=== PATIENT | female | born 1955 | race Caucasian/White ===

== ENCOUNTER 2017-08-30 03:11 | Emergency (ER) | payer BC, MEDICARE ==
[2017-08-30] MEDS ORDERED: Diatrizoate Meg/Sod(CONTRAST) 30 ML ORAL.SOLN PO ONE (04:01)
[2017-08-30] MEDS ORDERED: Diazepam TAB(NF) 2 MG TAB - use 2.5 of 5 mg tab autosub PO ONE (04:42)
[2017-08-30] MEDS ORDERED: Diazepam TAB(*) 5 MG ONE (04:52)
[2017-08-30] MEDS ORDERED: Diazepam TAB(*) 5 MG PO ONE (05:00)
[2017-08-30] MEDS ORDERED: Lidocaine/Epineph/Tetraca SOL* (LET solution) 4 ML BTL TOPICAL ONE (05:35)
--- NOTE | 2017-08-30 06:20 | ED ---
Xavi Marcum Jennifer, scribed for Oh Collins MD on 08/30/17 at 0353 . Abdominal Pain/Female - HPI Summary HPI Summary: The patient is a 62 year old female who presents with abdominal pain for almost two days. The patient has a pump in her stomach for Parkinson medication. She noticed that around the site behind the skin she has been feeling a rubbing sensation. She doesnt know if its a balloon or a flange. The pain is described as sore. The patient reports the pump has been in her stomach since around April 2017. She is accompanied by her son today. - History of Current Complaint Chief Complaint: EDAbdPain Stated Complaint: ABD PAIN Hx Obtained From: Patient Onset/Duration: Lasting Days - two days, Still Present Timing: Constant Severity Initially: Mild Severity Currently: Mild Pain Intensity: 2 Pain Scale Used: 0-10 Numeric Location: Epigastric Radiates: No Character: Other: - Sore, "rubbing" Aggravating Factor(s): Nothing Alleviating Factor(s): Nothing Associated Signs and Symptoms: Positive: Other: - sore around site of J tube Allergies/Adverse Reactions: Allergies Allergy/AdvReac Type Severity Reaction Status Date / Time ampicillin Allergy Nausea Verified 08/30/17 03:19 erythromycin base Allergy Hives/Diff. Verified 08/30/17 03:19 Breathing/I tching meperidine [From Demerol] Allergy Fatigue Verified 08/30/17 03:19 PMH/Surg Hx/FS Hx/Imm Hx Endocrine/Hematology History: Denies: Hx Diabetes Cardiovascular History: Denies: Hx Hypertension, Hx Pacemaker/ICD History: Denies: Hx Dialysis, Hx Renal Disease Sensory History: Denies: Hx Hearing Aid Neurological History: Reports: Other Neuro Impairments/Disorders - Parkinson's Psychiatric History: Denies: Hx Panic Disorder - Surgical History Surgery Procedure, Year, and Place: KIDNEY STONES REMOVED 2005 - Immunization History Date of Influenza Vaccine: did not receive Infectious Disease History: No Infectious Disease History: Reports: Hx Shingles Denies: Traveled Outside the [place] in Last 30 Days - Family History Known Family History: Positive: Cardiac Disease - Social History Alcohol Use: None Hx Substance Use: No Substance Use Type: Reports: None Hx Tobacco Use: No Smoking Status (MU): Never Smoked Tobacco Review of Systems Negative: Fever Positive: Abdominal Pain - at site of J tube All Other Systems Reviewed And Are Negative: Yes Physical Exam - Summary Physical Exam Summary: Appearance: Well appearing, no pain distress Skin: warm, dry, reflects adequate perfusion Head/face: normal Eyes: EOMI, HERIBERTO ENT: normal Neck: supple, non-tender Respiratory: CTA, breath sounds present Cardiovascular: RRR, pulses symmetrical Abdomen: non-tender, soft. No J tube in epigastrium. No redness in stmoa, no drainage around tube, movement of bowel content around the tube. Bowel Sounds: present Musculoskeletal: normal, strength/ROM intact Neuro: normal, sensory motor intact, A&Ox3 Triage Information Reviewed: Yes Vital Signs On Initial Exam: Initial Vitals Temp Pulse Resp BP Pulse Ox 97.8 F 73 16 182/94 99 08/30/17 03:14 08/30/17 03:14 08/30/17 03:14 08/30/17 03:14 08/30/17 03:14 Vital Signs Reviewed: Yes Diagnostics - Vital Signs Vital Signs Temp Pulse Resp BP Pulse Ox 08/30/17 03:14 97.8 F 73 16 182/94 99 - Laboratory Lab Statement: Any lab studies that have been ordered have been reviewed, and results considered in the medical decision making process. - Radiology Abdominal XR Xray Interpretation: Positive (See Comments) - feeding tube in the small bowel Radiology Interpretation Completed By: ED Physician Re-Evaluation - Re-Evaluation First Eval Re-Evaluation Time: 06:02 Change: Improved Comment: Pt's pain is gone after applying LET gel. Abdominal Pain Fem Course/Dx - Course Course Of Treatment: Patient with chronic troubles with her feeding tube. She has pain at the site of insertion in the skin. This is known to be a distal jejunal or ileal tube. She gets continuous infusion through a pump which has been functioning normally. The tube flushes normally. Contrasted x-rays were obtained and show the tube in position. Her pain was relieved with topical LET gel. She will follow-up with her receivable executive for any further issues with the tube. - Diagnoses Provider Diagnoses: Complication of feeding tube, Parkinsonism, Pain from gastrostomy tube Discharge - Sign-Out/Discharge Documenting (check all that apply): Discharge/Admit/Transfer - Discharge Plan Condition: Good Disposition: HOME Prescriptions: Lidocaine 2% JELLY* 1 applic TOPICAL TID PRN #1 tube PRN Reason: feeding tube site pain Referrals: aCrlos Loyola MD [Primary Care Provider] - Additional Instructions: Call your receivable executive for follow-up regarding discomfort the site of the feeding tube. Continue to use the tube as usual. Bolster the tube in whatever way he is most comfortable. Return if worse, new symptoms or other concerns as discussed. - Billing Disposition and Condition Condition: GOOD Disposition: HOME The documentation as recorded by the Xavi fink Jennifer accurately reflects the service I personally performed and the decisions made by me, Oh Collins MD.
[2017-08-30 06:30] VITALS: BP 148/90
--- NOTE | 2017-08-30 07:54 | RAD ---
INDICATION: Jejunostomy tube pain. COMPARISON: There are no prior studies available for comparison. TECHNIQUE: Frontal supine and lateral films of the abdomen were obtained. The exam appears to be performed status post injection of a jejunostomy tube with contrast. FINDINGS: The small bowel and colon appear nondistended. Contrast is noted opacifying small bowel in the midabdomen and left lower quadrant. The small bowel appears nondistended. There is no evidence for leakage of contrast. Incidental note is made of a [id number] dorsal lumbar scoliosis. IMPRESSION: JEJUNOSTOMY TUBE IN PLACE, NO EVIDENCE FOR OBSTRUCTION.
== END 2017-08-30 06:25 | disposition home or self-care (01) ==
LOC: ED 03:11
DX: K94.23 Gastrostomy malfunction (principal); G20 Parkinson's disease; R10.13 Epigastric pain; Z87.442 Personal history of urinary calculi; Z88.1 Allergy status to other antibiotic agents; Z88.0 Allergy status to penicillin; Z88.5 Allergy status to narcotic agent
CPT/HCPCS: 74018; 99283; A9270-GY

== ENCOUNTER 2017-11-04 06:39 | Emergency (ER) | payer MEDICARE ==
[2017-11-04 06:46] VITALS: BP 157/80
--- OUTSIDE RECORDS SUMMARY | 2017-11-04 06:53 | XMS REPORT ---
:1955 External Reference #:[id number] Author Organization [facility] Address [address] [place] [address] Phone [phone] Care Team Providers Name Role Phone HCP/LW on file Primary Care Physician Unavailable Payers Type Date Identification Numbers Payment Provider Subscriber Medicare Primary Effective: Policy Number: [facility] Maryan Torrez 2017 [id number] Services PayID: [id number] [address] [facility] [place] [address] [place] Policy Number: [id number] [facility] Maryan Torrez PayID: [id number] [address] [place] [address] Problems Date Description Provider Status Onset: 10/13/2014 Osteoporosis Carlos Loyola M.D. Active Onset: 10/13/2014 Vitamin D deficiency Carlos Loyola M.D. Active Onset: 10/13/2014 Parkinson's disease Carlos Loyola M.D. Active Onset: 10/13/2014 Anxiety state Carlos Loyola M.D. 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 Cigarette Use 05/13/2014 Never Smoked Cigarettes Smoking Non Smoker Daily Caffeine Consumes on average 1 cup of tea per day Exercise Type/Frequency Exercises regularly Sun Exposure Uses sunscreen Seat Belt/Car Seat Seat Belt Use - Yes Age 1st [place] 16 Years Old # Partners in a Lifetime 1 Allergies, Adverse Reactions, Alerts Date Description Reaction Status Severity Comments 05/13/2014 Ampicillin active nausea 12/22/2015 Erythromycin active Medications Medication Date Status Form Strength Qnty SIG Indications Ordering Provider Diclofenac 10/09/ Active Gel 1% 100gm apply up to 1 M79.642 Claudine Loyola 2018 gram 4x/day Carlos, as needed to M.D. base of left thumb Compleat A 10/08/ Active 2-3 oz twice Unknown Food Protein 2017 a day Carbidopa-Lev 05/19/ Active Tablets 25-100mg 1 tablet Unknown odopa 2018 nightly as needed backup for pump Duopa 05/19/ Active Suspension 4.63-20mg use via pump G20 Unknown 2017 /ml and G-tube; use as directed, 16 hours/day Vitamin B12 05/19/ Active Tablets ER 1000mcg take 1 Unknown 2018 sublingual tablet daily Neupro 04/11/ Active Patches 6mg/24HR daily G20 Unknown 2016 24HR Diazepam 12/21/ Active Tablets 2mg 180ta 05/09-1 tab by G20 Nir, 2015 bs mouth every 4 Carlos, hours as M.D. needed BP8 12/20/ Active 1 po daily Unknown 2015 (probiotic from [facility]) Metamucil 12/20/ Active Capsules 0.52gm one capsule Unknown 2015 daily for constipation Calcium 08/26/ Active Tablets 600mg po daily Unknown Carbonate 2015 Vitamin D3 07/11/ Active Capsules 5000Unit 1 by mouth Nir, 2015 every day for Carlos vitamin d M.D. replacement Gabapentin 04/21/ Active Capsules 300mg 540ca 2 capsules by Nir 2014 ps mouth 3x/day Benito Gonzalez Buspirone HCL 01/03/ Active Tablets 15mg 180ta take 1 tablet F41.9 Nir, 2014 bs by mouth two Carlos, times daily M.D. for anxiety Prolia 10/13/ Active Solution 60mg/ml 1ml inject 60mg M81.0 Nir 2014 s/c every 6 Carlos, months (due M.D. 06/2017) Fish Oil 05/12/ Active Capsules 1200mg 1 by mouth Unknown 2014 every day Carbidopa-Lev 05/12/ Active Tablets ER 50-200mg 1 tablet G20 Unknown odopa ER 2014 nightly Cephalexin 09/08/ Hx Capsules 500mg 21cap 1 capsule L03.311 Nir, 2018 - s 3x/day for 1 Carlos, 09/15/ week, for M.D. 2018 abdominal wall infection Lidocaine HCL 08/30/ Hx Gel 2% 100ml apply upo to Nir, 2017 - three times a Carlos, 09/07/ day as needed M.D. 2018 for feeding tube site pain Cephalexin 08/01/ Hx Capsules 500mg 14cap 1 twice a day L03.311 Nir , 2017 - s x 7 days for Carlos, 08/08/ infected M.D. 2018 region around peg tube. Neupro 12/01/ Hx Patches 4mg/24HR daily Unknown 2015 - 24HR 2017 Ropinirole 08/26/ Hx Tablets 0.25mg 1 tablet po Unknown HCL 2016 - five times 10/14/ daily 2016 Rytary 08/26/ Hx Capsules ER 36.25-145 3 capsules by G20 Unknown 2015 - mg mouth three 05/19/ times daily 2018 for Parkinson's Disease.. Takes at 0500, 1300 and 1600/1700. Domperidone 08/26/ Hx 10mg as directed, Unknown 2015 - take with 05/19/ every meal as 2018 needed Carbidopa-Lev 04/21/ Hx Tablets 25-100mg 1 by mouth G20 Unknown odopa 2014 - 6x/day for 05/22/ Parkinson's 2016 Disease Omeprazole 01/03/ Hx Capsules DR 40mg 30cap 1 by mouth 789.06 Nir, 2015 - s every day for Carlos, 04/21/ acid reflux M.D. 2014 and belly pain; stop if not helping after 1 week Lyrica 12/12/ Hx Capsules 75mg 1 capsule po Unknown 2014 - twice daily 12/19/ for 1 week 2014 and then increase to 2 capsules twice daily Melatonin 11/17/ Hx Liquid drop as need Unknown 2014 - at hs 2014 Zolpidem 10/31/ Hx Tablets 5mg 30tab 1 by mouth Nir Tartrate 2014 - s every night Carlos 07/13/ as needed for M.D. 2014 sleep Paroxetine 10/28/ Hx Tablets 20mg 1/2 pill 300.00 [place], HCL 2015 - daily for 2 Carlos weeks then M.D. 2014 stop it 332.0 Gabapentin 10/28/2014 - Hx Capsules 100mg 360caps 4 capsules 782.0 [place], 12/12/2014 3x/day, for Carlos, nerve pain M.D. Buspirone HCL 10/13/2014 - Hx Tablets 10mg 60tabs 1/2 by mouth 300.00 [place]ff, 01/03/2015 twice a day Carlos, for 1 week M.D. then increase to 1 pill 2x/day; for anxiety Gabapentin 09/24/2014 - Hx Capsules 100mg 270caps 3 capsules by 782.0 [place]ff, 10/28/2014 mouth 3x/day Carlos, for M.D. neuropathic pain and anxiety Gabapentin 09/19/2014 - Hx Capsules 100mg 100caps 1 by mouth at 782.0 Silcoff, 09/24/2014 bedtime avel Gonzalez, then M.D. 1 pill 2x/day on monday then 1 pill 3x/day starting monday Vitamin D3 09/15/2014 - Hx Capsules [id number] 1 by mouth 268.9 Philippe, 12/16/2014 t every week, MD Mame for vitamin D deficiency Paroxetine 07/18/2014 - Hx Tablets 20mg 30tabs Take One 300.00 [place]ff, HCL 10/28/2014 Tablet By Carlos Mouth Every M.D. Day For Anxiety 332.0 Amantadine HCL 07/17/2014 - Hx Tablets 100mg 1 by mouth 332.0 [place], 09/15/2014 every morning MD Victoriano for Parkinson's Disease Paroxetine HCL 07/01/2014 - Hx Tablets 10mg 30ta 1 tablet po in 300.00 Shanelle, 07/18/2014 bs the evening MD Victoriano before bed 332.0 Amantadine HCL 06/12/2014 - Hx Tablets 100mg 60tabs 1 tablet po 332.0 [place], 07/17/2014 daily in the MD Victoriano morning for 2 weeks,then 1 capsule in the morning an 1 capsule at noon Carbidopa-Levo 05/12/2014 - Hx Tablets 25-100mg 1 po 0700, G20 Unknown dopa 04/21/2015 11:00, 3:00pm, 7:00pm, 1 am Selegiline HCL 05/12/2014 - Hx Capsules 5mg 1 po daily Unknown 06/05/2014 Vitamin D3 05/12/2014 - Hx Capsules 1000Unit daily Unknown 07/12/2015 Gabapentin - Hx Capsules 300mg 1 by mouth at Unknown 04/21/2015 0500, 1100, 1500, 1900 and 0100. Gabapentin - Hx Capsules 100mg 2 caps po at Unknown 04/21/2015 2130. Medications Administered in Office Medication Date Status Form Strength Qnty SIG Indications Ordering Provider SC/Im Administered Injection Nurse's Injections 018 Schedule SC/Im Administered Injection Nurse's Injections 017 Schedule SC/Im Administered Injection Nurse's Injections 017 Schedule SC/Im Administered Injection Nurse's Injections 016 Schedule SC/Im Administered Injection Nurse's Injections 016 Schedule SC/Im Administered Injection Silcoff, Injections 015 Benito Gonzalez Immunizations CPT Code Status Date Vaccine Lot # [id number] Given 08/12/2014 Zostavax [id number] Given 08/12/2014 Adacel or Boostrix, TDaP [id number] Refused 09/08/2017 Shingrix Zoster (Shingles) Vaccine (HZV) Recomb,Subnit,Adjuvanted Vital Signs Date Vital Result Comment 10/09/2017 BP Systolic 90 mmHg BP Diastolic 66 mmHg Weight 93.00 lb 09/08/2017 BP Systolic 96 mmHg BP Diastolic 69 mmHg Heart Rate 75 /min Body Temperature 97.3 F Weight 92.00 lb 08/01/2017 BP Systolic 110 mmHg BP Diastolic 72 mmHg Body Temperature 98.2 F Weight 94.00 lb with shoes 05/20/2017 BP Systolic 114 mmHg BP Diastolic 57 mmHg Heart Rate 61 /min Body Temperature 97.6 F Height 66 inches 5'6" Weight 98.00 lb w/shoes and pump BMI (Body Mass Index) 15.8 kg/m2 09/13/2016 BP Systolic 120 mmHg BP Diastolic 67 mmHg Height 65 inches 5'5" Weight 100.00 lb BMI (Body Mass Index) 16.6 kg/m2 08/24/2016 BP Systolic 122 mmHg BP Diastolic 80 mmHg Height 65.5 inches 5'5.50" Weight 102.00 lb BMI (Body Mass Index) 16.7 kg/m2 12/25/2015 BP Systolic 130 mmHg BP Diastolic 76 mmHg 12/22/2015 BP Systolic 98 mmHg BP Diastolic 62 mmHg Weight 98.00 lb 09/08/2015 BP Systolic 104 mmHg BP Diastolic 66 mmHg Heart Rate 72 /min reg Respiratory Rate 16 /min not laboured Height 65 inches 5'5" Weight 107.00 lb BMI (Body Mass Index) 17.8 kg/m2 04/22/2015 BP Systolic 126 mmHg BP Diastolic 90 mmHg Weight 123.00 lb 01/03/2015 BP Systolic 130 mmHg BP Diastolic 80 mmHg Weight 129.00 lb with sneakers 12/19/2014 BP Systolic 90 mmHg Left arm BP Diastolic 35 mmHg Left arm BP Systolic Recheck 90 mmHg Right arm BP Diastolic Recheck 62 mmHg Right arm Heart Rate 68 /min 80 Weight 129.00 lb 11/18/2014 BP Systolic 108 mmHg BP Diastolic 82 mmHg Weight 130.00 lb shoes on 10/13/2014 BP Systolic 102 mmHg BP Diastolic 60 mmHg 09/19/2014 BP Systolic 170 mmHg BP Diastolic 110 mmHg Weight 129.00 lb 08/12/2014 BP Systolic 120 mmHg BP Diastolic 80 mmHg Height 65.25 inches 5'5.25" Weight 127.00 lb BMI (Body Mass Index) 21.0 kg/m2 07/18/2014 BP Systolic 112 mmHg BP Diastolic 68 mmHg 07/09/2014 BP Systolic 144 mmHg BP Diastolic 96 mmHg Weight 126.00 lb w/shoes 05/13/2014 BP Systolic 160 mmHg BP Diastolic 86 mmHg BP Systolic Recheck 146 mmHg R arm sitting BP Diastolic Recheck 94 mmHg R arm sitting Height 65 inches 5'5" Weight 128.50 lb BMI (Body Mass Index) 21.4 kg/m2 Results Test Date Test Result H/L Range Note Laboratory test finding 07/03/2017 Calcium 9.9 mg/dL 8.6-10.3 Basic Metabolic Panel 12/21/2016 Sodium 138 mmol/L 133-145 Potassium 3.9 mmol/L 3.5-5.0 Chloride 103 mmol/L 101-111 Co2 Carbon Dioxide 31 mmol/L 22-32 Anion Gap 4 mmol/L 2-11 Glucose 81 mg/dL 70-100 Blood Urea Nitrogen 10 mg/dL 6-24 Creatinine 0.68 mg/dL 0.51-0.95 BUN/Creatinine Ratio 14.7 8-20 Calcium 9.2 mg/dL 8.6-10.3 Egfr Non- 87.4 >60 Egfr 112.4 >60 1 Laboratory test finding 08/24/2016 Magnesium 2.3 mg/dL 1.9-2.7 Vitamin D Total 25(Oh) 30.9 ng/mL 30-50 TSH (Thyroid Stim Horm) 1.48 mcIU/mL 0.34-5.60 C Reactive Protein < 1.00 mg/L < 5.00 2 Erythrocyte Sed Rate 5 mm/Hr 0-30 Vitamin B12 695 pg/mL 180-914 3 Comp Metabolic Panel 08/24/2016 Sodium 140 mmol/L 133-145 Potassium 4.2 mmol/L 3.5-5.0 Chloride 104 mmol/L 101-111 Co2 Carbon Dioxide 34 mmol/L High 22-32 Anion Gap 2 mmol/L 2-11 Glucose 106 mg/dL High 70-100 Blood Urea Nitrogen 8 mg/dL 6-24 Creatinine 0.68 mg/dL 0.51-0.95 BUN/Creatinine Ratio 11.8 8-20 Calcium 10.0 mg/dL 8.6-10.3 Total Protein 6.8 g/dL 6.4-8.9 Albumin 4.6 g/dL 3.2-5.2 Globulin 2.2 g/dL 2-4 Albumin/Globulin Ratio 2.1 1-3 Total Bilirubin 0.50 mg/dL 0.2-1.0 Alkaline Phosphatase 49 U/L 34-104 Alt 8 U/L 7-52 Ast 25 U/L 13-39 Egfr Non- 87.4 >60 Egfr 112.4 >60 4 CBC Auto Diff 08/24/2016 White Blood Count 5.9 10^3/uL 3.5-10.8 Red Blood Count 5.12 10^6/uL 4.0-5.4 Hemoglobin 14.5 g/dL 12.0-16.0 Hematocrit 45 % 35-47 Mean Corpuscular Volume 88 fL 80-97 Mean Corpuscular Hemoglobin 28 pg 27-31 Mean Corpuscular HGB Conc 32 g/dL 31-36 Red Cell Distribution Width 15 % 10.5-15 Platelet Count 208 10^3/uL 150-450 Mean Platelet Volume 10 um3 7.4-10.4 Abs Neutrophils 4.4 10^3/uL 1.5-7.7 Abs Lymphocytes 1.0 10^3/uL 1.0-4.8 Abs Monocytes 0.4 10^3/uL 0-0.8 Abs Eosinophils 0.1 10^3/uL 0-0.6 Abs Basophils 0 10^3/uL 0-0.2 Abs Nucleated RBC 0 10^3/uL Granulocyte % 75.1 % 38-83 Lymphocyte % 17.0 % Low 25-47 Monocyte % 6.4 % 1-9 Eosinophil % 0.9 % 0-6 Basophil % 0.6 % 0-2 Nucleated Red Blood Cells % 0 Celiac Panel 08/24/2016 Tissue Transglutaminase IgA Ab <1.2 U/mL 5 Immunoglobulin A 100 mg/dL 61 - 356 Celiac Interpretation See Comment 6 Celiac Hla DQ1/DQ2 08/24/2016 Hla-Dqa1 SEE BELOW 7 Hla-DQB1 SEE BELOW 8 Celiac Gene Pairs Present? No Celiac Gene Interpretation See Comment 9 Basic Metabolic Panel 06/27/2016 Sodium 141 mmol/L 133-145 Potassium 4.1 mmol/L 3.5-5.0 Chloride 102 mmol/L 101-111 Co2 Carbon Dioxide 32 mmol/L 22-32 Anion Gap 7 mmol/L 2-11 Glucose 96 mg/dL 70-100 Blood Urea Nitrogen 10 mg/dL 6-24 Creatinine 0.76 mg/dL 0.51-0.95 BUN/Creatinine Ratio 13.2 8-20 Calcium 10.2 mg/dL 8.6-10.3 Egfr Non- 76.9 >60 Egfr 98.8 >60 10 Laboratory test finding 06/27/2016 Vitamin D Total 25(Oh) 32.9 ng/mL 30- 50 Basic Metabolic Panel 12/28/2015 Sodium 141 mmol/L 133-145 Potassium 4.3 mmol/L 3.5-5.0 Chloride 103 mmol/L 101-111 Co2 Carbon Dioxide 34 mmol/L High 22-32 Anion Gap 4 mmol/L 2-11 Glucose 77 mg/dL 70-100 Blood Urea Nitrogen 9 mg/dL 6-24 Creatinine 0.67 mg/dL 0.51-0.95 BUN/Creatinine Ratio 13.4 8-20 Calcium 9.8 mg/dL 8.6-10.3 Egfr Non- 89.2 >60 Egfr 114.7 >60 11 CBC Auto Diff 12/17/2015 White Blood Count 6.7 10^3/uL 3.5-10.8 Red Blood Count 5.50 10^6/uL High 4.0-5.4 Hemoglobin 15.3 g/dL 12.0-16.0 Hematocrit 47 % 35-47 Mean Corpuscular Volume 86 fL 80-97 Mean Corpuscular Hemoglobin 28 pg 27-31 Mean Corpuscular HGB Conc 32 g/dL 31-36 Red Cell Distribution Width 15 % 10.5-15 Platelet Count 235 10^3/uL 150-450 Mean Platelet Volume 9 um3 7.4-10.4 Abs Neutrophils 4.4 10^3/uL 1.5-7.7 Abs Lymphocytes 1.6 10^3/uL 1.0-4.8 Abs Monocytes 0.6 10^3/uL 0-0.8 Abs Eosinophils 0.1 10^3/uL 0-0.6 Abs Basophils 0 10^3/uL 0-0.2 Abs Nucleated RBC 0 10^3/uL Granulocyte % 65.3 % 38-83 Lymphocyte % 24.0 % Low 25-47 Monocyte % 9.2 % High 1-9 Eosinophil % 0.9 % 0-6 Basophil % 0.6 % 0-2 Nucleated Red Blood Cells % 0 Laboratory test finding 12/17/2015 Lactic Acid 1.2 mmol/L 0.5-2.0 12 Digoxin 0.2 ng/ml Low 0.8-2.0 Comp Metabolic Panel 12/17/2015 Sodium 139 mmol/L 133-145 Potassium 3.7 mmol/L 3.5-5.0 Chloride 103 mmol/L 101-111 Co2 Carbon Dioxide 28 mmol/L 22-32 Anion Gap 8 mmol/L 2-11 Glucose 106 mg/dL High 70-100 Blood Urea Nitrogen 10 mg/dL 6-24 Creatinine 0.65 mg/dL 0.51-0.95 BUN/Creatinine Ratio 15.4 8-20 Calcium 9.8 mg/dL 8.6-10.3 Total Protein 7.2 g/dL 6.4-8.9 Albumin 4.7 g/dL 3.2-5.2 Globulin 2.5 g/dL 2-4 Albumin/Globulin Ratio 1.9 1-3 Total Bilirubin 0.90 mg/dL 0.2-1.0 Alkaline Phosphatase 43 U/L 34-104 Alt 6 U/L Low 7-52 Ast 16 U/L 13-39 Egfr Non- 92.4 >60 Egfr 118.8 >60 13 Laboratory test finding 12/17/2015 Troponin-I (TnI) 0.00 ng/mL <0.03 14 Laboratory test finding 06/29/2015 Calcium 9.9 mg/dL 8.6-10.3 Vitamin D Total 25(Oh) 28.0 ng/mL Low 30-50 Laboratory test finding 02/16/2015 Clotest SEE RESULT BELOW 15 Laboratory test finding 11/18/2014 [place] Pylori Negative Negative 16 Antigen- Stool Urine Micro Inhouse 11/18/2014 Ua WBC 8-12 17 Ua RBC - 17 Ua Casts - 17 Ua Epi 0-3 17 Ua Other - 17 Ua Glucose - 17 Ua Bilirubin - 17 Ua Ketones - 17 Ua Specific [place] 1.005 17 Ua Blood - 17 Ua PH 6.5 17 Ua Protein - 17 Ua Urobilinogen - 17 Ua Nitrite - 17 Ua Leukocytes lg 17 Laboratory test finding 10/13/2014 Hepatitis C Antibody Nonreactive Nonreactive Calcium 9.8 mg/dL 8.6-10.3 Laboratory test finding 09/22/2014 Angiotension Converting 30 U/L 8 - 53 18 Enzyme Lyme Disease Serology 09/22/2014 Lyme Disease IgG Ab WB Negative Negative Lyme Disease IgG Bands Present p41, kDa Lyme Disease IgM Ab WB Negative Negative Lyme Disease IgM Bands Present No bands detecte <SEE NOTE> kDa 19 Lyme Disease Interpretation See Comment 20 Laboratory test finding 09/22/2014 Vitamin D Total 25(Oh) 24.6 ng/mL Low 30-50 Erythrocyte Sed Rate 5 mm/Hr 0-30 Joslyn (Anti-Nuclear AB) Screen Negative Negative Angiotension Converting Enzyme 30 U/L 8 - 53 21 Lyme Disease Serology Positive Negative 22 Laboratory test finding 08/12/2014 Cytology RUN DATE: 08/13/ <SEE NOTE> 23 Human Papilloma Virus Rna Negative Negative 24 Lipid Profile (Trig/Chol/HDL) 08/12/2014 Triglycerides 107 mg/dL 25 Cholesterol 189 mg/dL 26 HDL Cholesterol 64.0 mg/dL 27 LDL Cholesterol 104 mg/dL 28 Urine Culture And Sensitivities 06/05/2014 Urine Culture (SEE NOTE) 29 1 Because ethnic data is not always readily available, this report includes an eGFR for both -Americans and non- Americans. The National Kidney Disease Education Program (NKDEP) does not endorse the use of the MDRD equation for patients that are not between the ages of 18 and 70, are , have extremes of body size, muscle mass, or nutritional status, or are non- or non-. According to the National Kidney Foundation, irrespective of diagnosis, the stage of the disease is based on the level of kidney function: Stage Description GFR(mL/min/1.73 m(2)) 1 Kidney damage with normal or decreased GFR 90 2 Kidney damage with mild decrease in GFR 60-89 3 Moderate decrease in GFR 30-59 4 Severe decrease in GFR 15-29 5 Kidney failure <15 (or dialysis) 2 Acute inflammation: >10.00 3 Normal Range 180 to 914 Indeterminate Range 145 to 180 Deficient Range <145 4 Because ethnic data is not always readily available, this report includes an eGFR for both -Americans and non- Americans. The National Kidney Disease Education Program (NKDEP) does not endorse the use of the MDRD equation for patients that are not between the ages of 18 and 70, are , have extremes of body size, muscle mass, or nutritional status, or are non- or non-. According to the National Kidney Foundation, irrespective of diagnosis, the stage of the disease is based on the level of kidney function: Stage Description GFR(mL/min/1.73 m(2)) 1 Kidney damage with normal or decreased GFR 90 2 Kidney damage with mild decrease in GFR 60-89 3 Moderate decrease in GFR 30-59 4 Severe decrease in GFR 15-29 5 Kidney failure <15 (or dialysis) 5 REFERENCE VALUE <4.0 (Negative) Test Performed by: [facility] - [address] [address] 6 Negative serology. Celiac disease unlikely. However, approximately 10% of patients with celiac disease are seronegative. Also, patients who are already adhering to a gluten-free diet may be seronegative. If celiac disease is highly clinically suspected, consider HLA-DQ typing. Test Performed by: [facility] - [address] [address] 7 RESULT: 01:03,05 REFERENCE VALUE Not Applicable 8 RESULT: 03:01,06:03 DQ Serologic Equivalent: 7,6 REFERENCE VALUE Not Applicable 9 The absence of HLA celiac permissive genes would make the presence of celiac disease unlikely. ADDITIONAL INFORMATION Method: Molecular typing of HLA antigens performed using reverse SSOP and/or SSP methods, reported as serological equivalents and low to medium resolution molecular values. Performing Laboratory CLIA# [id number] Test Performed by: [address] [address] 10 Because ethnic data is not always readily available, this report includes an eGFR for both -Americans and non- Americans. The National Kidney Disease Education Program (NKDEP) does not endorse the use of the MDRD equation for patients that are not between the ages of 18 and 70, are , have extremes of body size, muscle mass, or nutritional status, or are non- or non-. According to the National Kidney Foundation, irrespective of diagnosis, the stage of the disease is based on the level of kidney function: Stage Description GFR(mL/min/1.73 m(2)) 1 Kidney damage with normal or decreased GFR 90 2 Kidney damage with mild decrease in GFR 60-89 3 Moderate decrease in GFR 30-59 4 Severe decrease in GFR 15-29 5 Kidney failure <15 (or dialysis) 11 Because ethnic data is not always readily available, this report includes an eGFR for both -Americans and non- Americans. The National Kidney Disease Education Program (NKDEP) does not endorse the use of the MDRD equation for patients that are not between the ages of 18 and 70, are , have extremes of body size, muscle mass, or nutritional status, or are non- or non-. According to the National Kidney Foundation, irrespective of diagnosis, the stage of the disease is based on the level of kidney function: Stage Description GFR(mL/min/1.73 m(2)) 1 Kidney damage with normal or decreased GFR 90 2 Kidney damage with mild decrease in GFR 60-89 3 Moderate decrease in GFR 30-59 4 Severe decrease in GFR 15-29 5 Kidney failure <15 (or dialysis) 12 [facility] Severe Sepsis and Septic Shock Management Bundle Measure requires all lactic acids initially measuring >2.0 mmol/L be repeated. 13 Because ethnic data is not always readily available, this report includes an eGFR for both -Americans and non- Americans. The National Kidney Disease Education Program (NKDEP) does not endorse the use of the MDRD equation for patients that are not between the ages of 18 and 70, are , have extremes of body size, muscle mass, or nutritional status, or are non- or non-. According to the National Kidney Foundation, irrespective of diagnosis, the stage of the disease is based on the level of kidney function: Stage Description GFR(mL/min/1.73 m(2)) 1 Kidney damage with normal or decreased GFR 90 2 Kidney damage with mild decrease in GFR 60-89 3 Moderate decrease in GFR 30-59 4 Severe decrease in GFR 15-29 5 Kidney failure <15 (or dialysis) 14 Reference Range and Interpretation: TnI (ng/mL) Interpretation Less Than 0.03 ng/mL Not supportive of diagnosis of [place] 0.03 - 0.50 ng/mL Indeterminate: suggest serial studies if clinically indicated. Greater than 0.5 ng/mL Consistent with diagnosis of [place] 15 SEE RESULT BELOW Name: MARYAN TORREZ : [address]: Pedro Padgett MD Acct: [id number] Unit: [id number] AGE: 60 Location: [facility] Re02/16/15 SEX: F Status: REG REF SPEC: [id number] TRES: 02/16/[address] [facility] [address]: Pedro Padgett MD REQ: [id number] RECD: 02/16/15 STATUS: COMP OTHR DR: Carlos Loyola MD _ SOURCE: GAS ANTRUM SPDESC: ORDERED: Clotest Procedure Result Verified Site Clotest Final 02/17/15- 0759 ML Clotest Negative * ML - [facility] ([facility]) . END OF REPORT * ML=Testing performed at [facility] DEPARTMENT OF PATHOLOGY, [address] [place] [address] Moise Joyce M.D. Director [facility] # [id number] 16 Test Performed by: [place] [address] [employer]: Camden Martínez II, M.D., Ph.D. 17 [id number] yellow 18 Test Performed by: [place] [address] [employer]: Camden Martínez II, M.D., Ph.D. 19 No bands detected 20 Specific serologic response to B. burgdorferi infection is not detected, but cannot rule out early infection during which low or undetectable antibody levels to B. burgdorferi may be present. If clinically indicated, a new serum specimen should be submitted in 7-14 days. ADDITIONAL INFORMATION CDC criteria require >=5 bands for IgG or >=2 bands for IgM for the Immunoblot to be considered positive. Bands (e.g.,p41) may be detected in patients without Lyme disease, and patterns not meeting the CDC criteria should be interpreted with caution. Immunoblot should be ordered only on specimens that are positive or equivocal by a FDA-licensed Lyme disease antibody screening test (e.g., EIA). Test Performed by: [address] [address] [employer]: Camden Martínez II, M.D., Ph.D. 21 Test Performed by: [place] [address] [employer]: Camden Martínez II, M.D., Ph.D. 22 Not diagnostic. Supplemental testing ordered by reflex. Test Performed by: [place] [address] [employer]: Camden Martínez II, M.D., Ph.D. 23 RUN DATE: 08/13/14 [facility] LIVE PAGE 1 RUN TIME: [id number] [place] [id number] Specimen Inquiry Name: MARYAN TORREZ Gail : [address]: Carlos Loyola MD Acct: [id number] Unit: [id number] AGE: 59 Location: [facility] Re08/12/14 SEX: F Status: REG REF SPEC: [id number] TRES: 08/12/14-[address]: Carlos Loyola MD REQ: [id number] RECD: 08/12/147440 STATUS: SOUT _ ORDERED: IMAGE ANALYSIS, HPV/Thin Prep FINAL DIAGNOSIS Negative for Intraepithelial lesion or Malignancy A. Ectocervical/Endocervical Specimen Adequacy: Satisfactory of evaluation Transformation zone component identified Patient Information: HPV: High risk HPV RNA testing regardless of pap results. Actual Specimen Date: 08/12/14 LMP If Unknown: 11 yrs ago ?: N Post Menopausal?: Y Hysterectomy?: N Date Time Test Result Flag (u) Normal Range 08/12/14 1131 HPV RNA Negative Negative The high-risk HPV types detected by the assay include: 16, 18, 31, 33, 35, 39, 45, 51, 52, 56, 58, 59, 66, and 68. Signed (signature on file) BRENDA Hylton (ASCP) 08/13 1446 This Pap test was evaluated with the assistance of the [employer] [facility]. Due to cytologic findings at the expense clerk microscope, comprehensive manual rescreening by a Intelligent Systems Engineer may be required. The Pap Smear is a screening test designed to aid in the detection of premalignant and malignant conditions of the uterine cervix. It is not a diagnostic procedure and should not be used as the sole means of detecting cervical cancer. Both false- positive and false- negative reports do occur. Depending on your risk status, a Pap smear should be obtained and evaluated every 1-3 years. END OF REPORT * ML=Testing performed at Main Lab DEPARTMENT OF PATHOLOGY, [address] [place] [address] Moise Joyce M.D. Director [facility] # [id number] The high-risk HPV types detected by the assay include: 16, 18, 31, 33, 35, 39, 45, 51, 52, 56, 58, 59, 66, and 68. 25 Desirable <150 Borderline high 150-199 High 200-499 Very High >500 26 Desirable <200 Borderline high 200-239 High >239 27 Low <40 Desirable: 40-60 High: >60 28 Desirable: <100 mg/dL Near Optimal: 100-129 mg/dL Borderline High: 130-159 mg/dL High: 160-189 mg/dL Very High: >189 mg/dL 29 RUN DATE: 06/07/14 [facility] LAB LIVE PAGE 1 RUN TIME: [address] [place] [id number] Specimen Inquiry Name: MARYAN TORREZ : [address]: Victoriano Timmons MD Acct: [id number] Unit: [id number] AGE: 59 Location: [facility] Re06/05/14 SEX: F Status: REG REF SPEC: [id number] TRES: 06/05/14-[address] [facility] [address]: Victoriano Timmons MD REQ: [id number] RECD: 06/05/14 STATUS: [place]ALA [place] DR: Carlos Loyola MD _ SOURCE: URINE SPDESC: ORDERED: Urine Culture QUERIES: Provider Requisition # [id number] Urine Source: Clean Catch Procedure Result Verified Site Urine Culture Final 06/07/14- 1400 ML Organism 1 STREP GROUP G [place] Count 10-25,000 (Moderate) CFU/ML Organism 2 NORMAL WADE [place] Count 25-50,000 (Moderate) CFU/ML END OF REPORT * ML=Testing performed at Main Lab DEPARTMENT OF PATHOLOGY, [address] [place] [address] Moise Joyce M.D. Director [facility] # [id number] Procedures Date CPT Code Description Status Comment 10/09/2017 57518 X-Ray Finger(S) Two Views Completed 07/10/2017 03270 SC/Im Injections Completed 05/20/2017 22723 Destruction Premalignant Completed Skin Lesions 01/04/2017 32832 SC/Im Injections Completed 09/13/2016 66449 Dexa Bone Density Study One Completed Or More Sites Axial Skeleton 09/05/2016 Mammogram Completed 2017: benign; 05/13/14: Pt elected for q2yr mammos (discussed again 5/3/16 and pt confirmed this) 07/06/2016 60212 SC/Im Injections Completed 01/05/2016 96022 SC/Im Injections Completed 07/06/2015 95384 SC/Im Injections Completed 01/03/2015 05148 SC/Im Injections Completed 08/12/2014 17690 Dexa Bone Density Study One Completed Or More Sites Axial Skeleton 12/06/2012 Colonoscopy Completed 12/18: int hemorrhoids, few sig ticss w/ sig adhesion had 1 polyp on initial C-scope hyperplastic polyp in 2007) Encounters Type Date Location Provider CPT E/M Dx Office Visit 10/09/2017 11:15a Main Office Carlos Loyola M.D. 57073 M79.642 M18.12 M67.442 Office Visit 09/08/2017 12:55p Main Office Carlos Loyola M.D. 63522 L03.311 G20 R63.4 Z23 Office Visit 08/01/2017 4:00p Main Office Mohamud Morrell 70204 L03.311 G20 K30 K94.22 Office Visit 05/20/2017 10:30a Main Office Carlos Loyola M.D. 17564 G20 R63.4 L57.0 L82.1 Office Visit 09/13/2016 10:05a [place] [address] Z00.00 Z12.31 M81.0 G20 F41.9 Office Visit 08/24/2016 12:55p Main Office Kai Saeed D.O. 68105 F33.9 G20 G25.81 F41.9 G90.8 Office Visit 12/25/2015 4:15p Main Office Carlos Loyola M.D. 80003 S22.32xD G20 Office Visit 12/22/2015 3:15p Main Office Carlos Loyola M.D. 80974 G20 Office Visit 09/08/2015 10:30a Main Office Carlos Loyola M.D. 97878 G20 M81.0 Z12.39 G25.81 F41.9 Z00.01 Office Visit 04/22/2015 1:45p Main Office Carlos Loyola M.D. 61148 G20 R20.8 G25.81 A04.9 M81.0 Office Visit 01/03/2015 11:00a Main Office Carlos Loyola M.D. 14104 332.0 300.00 536.8 789.06 618.4 733.00 V07.2 Office Visit 12/19/2014 11:00a Main Office Kai Saeed D.O. 45839 780.94 536.8 332.0 Office Visit 11/18/2014 11:00a Main Office Carlos Loyola M.D. 66367 332.0 536.8 922.31 923.09 924.01 E885.9 Office Visit 10/13/2014 10:15a Main Office Carlos Loyola M.D. 93930 733.00 268.9 332.0 300.00 782.0 V75.9 Office Visit 09/19/2014 11:15a Main Office aCrlos Loyola M.D. 69125 332.0 300.00 733.00 782.0 Office Visit 08/12/2014 8:55a Main Office Carlos Loyola M.D. 55106 300.00 332.0 V76.10 V76.2 V72.31 733.00 272.0 618.4 782.0 v06.1 v05.8 V70.0 v07.2 Office Visit 07/18/2014 10:15a Main Office Carlos Loyola M.D. 76443 332.0 300.00 Office Visit 07/09/2014 2:30p Main Office Carlos Loyola M.D. 21685 332.0 300.00 782.0 796.2 Office Visit 05/13/2014 3:30p Main Office Carlos Loyola M.D. 41925 332.0 796.2 V76.10 Plan of Care Future Appointment(s):01/11/2018 10:00 am - Nurse's Schedule at Main [facility]0610/09 - Carlos Loyola M.D.M79.642 Pain in left handNew Medication:Diclofenac Sodium 1 %Comments:Xray shows advanced degenerative changes at the 1st CMC joint L hand. There are no solid soft tissuemasses noted on Xray. The cystic nodule noted on exam is a ganglion cyst. Pt counseled re Dx. Advised trial of a topical NSAID. If discomfort not adequately controlled she will call back for referral to orthopedic hand specialist.M18.12 Unil primary osteoarth of first carpometacarp joint, l handM67.442 Ganglion, left hand
--- NOTE | 2017-11-04 07:39 | ED ---
ED Suture/Wound Check - HPI Summary HPI Summary: Patient is a 62-year-old female with a history of Parkinson's with a J tube presenting to the ED with a son with a complaint of difficulty flushing J-tube. She also endorses increased sediment in the tube. Denies any other symptoms or complaints at this time. Continues to receive protein supplements through the tube and is not currently on a pump otherwise. - History Of Current Complaint Chief Complaint: EDGeneral Stated Complaint: GENERAL ILLNESS Time Seen by Provider: 11/04/17 06:54 Hx Obtained From: Patient Onset/Duration: Gradual Onset Pain Intensity: 0 Pain Scale Used: 0-10 Numeric - Allergies/Home Medications Allergies/Adverse Reactions: Allergies Allergy/AdvReac Type Severity Reaction Status Date / Time ampicillin Allergy Nausea Verified 11/04/17 06:46 erythromycin base Allergy Hives/Diff. Verified 11/04/17 06:46 Breathing/I tching meperidine [From Demerol] Allergy Fatigue Verified 11/04/17 06:46 PMH/Surg Hx/FS Hx/Imm Hx Previously Healthy: Yes Endocrine/Hematology History: Denies: Hx Diabetes Cardiovascular History: Denies: Hx Hypertension, Hx Pacemaker/ICD History: Denies: Hx Dialysis, Hx Renal Disease Sensory History: Denies: Hx Hearing Aid Neurological History: Reports: Other Neuro Impairments/Disorders - Parkinson's Psychiatric History: Denies: Hx Panic Disorder - Surgical History Surgery Procedure, Year, and Place: KIDNEY STONES REMOVED 2005 - Immunization History Date of Influenza Vaccine: did not receive Hx Pertussis Vaccination: No Immunizations Up to Date: Unable to Obtain/Confirm Infectious Disease History: No Infectious Disease History: Reports: Hx Shingles Denies: Traveled Outside the [place] in Last 30 Days - Family History Known Family History: Positive: Cardiac Disease - Social History Occupation: Unemployed Lives: With Family Alcohol Use: None Hx Substance Use: No Substance Use Type: Reports: None Hx Tobacco Use: No Smoking Status (MU): Never Smoked Tobacco Review of Systems Constitutional: Negative Negative: Fever, Chills, Fatigue Negative: Palpitations, Chest Pain Negative: Shortness Of Breath, Cough Genitourinary: Negative Positive: no symptoms reported, see HPI Negative: Arthralgia, Myalgia Negative: Rash, Bruising Neurological: Negative All Other Systems Reviewed And Are Negative: Yes Physical Exam Triage Information Reviewed: Yes Vital Signs On Initial Exam: Initial Vitals Temp Pulse Resp BP Pulse Ox 97 F 66 16 157/80 99 11/04/17 06:42 11/04/17 06:42 11/04/17 06:42 11/04/17 06:42 11/04/17 06:42 Vital Signs Reviewed: Yes Appearance: Positive: Well-Appearing, Well-Nourished Skin: Positive: Warm, Skin Color Reflects Adequate Perfusion Head/Face: Positive: Normal Head/Face Inspection Respiratory/Lung Sounds: Positive: Clear to Auscultation, Breath Sounds Present Cardiovascular: Positive: RRR Musculoskeletal: Positive: Normal Neurological: Positive: Other - parkinsonian symptoms - at baseline Psychiatric: Positive: Normal AVPU Assessment: Alert Diagnostics - Vital Signs Vital Signs Temp Pulse Resp BP Pulse Ox 11/04/17 06:42 97 F 66 16 157/80 99 - Laboratory Lab Statement: Any lab studies that have been ordered have been reviewed, and results considered in the medical decision making process. Course/Dx - Course Course Of Treatment: RN attempted to flush tube with warm water. Pressure against the flush. She states the tube appears to be flushing well, due to 1 successful flush of the one lumen, however the other lumen is with pressure making this more likely a valve problem. [place] was removed, and soaked in warm water for 20 minutes. Replaced and flushing improves, however she will likely need a new valve. She is given information for the medical supply store at [place] and will obtain a new valve. - Clinical Impression Provider Diagnoses: Malfunctioning jejunostomy tube Discharge - Sign-Out/Discharge Documenting (check all that apply): Discharge/Admit/Transfer - Discharge Plan Condition: Stable Disposition: HOME Referrals: Carlos Loyola MD [Primary Care Provider] - - Billing Disposition and Condition Condition: STABLE Disposition: Home
== END 2017-11-04 07:43 | disposition home or self-care (01) ==
LOC: ED 06:39
DX: K94.13 Enterostomy malfunction (principal); Z88.3 Allergy status to other anti-infective agents; Z88.5 Allergy status to narcotic agent
CPT/HCPCS: 99282

== ENCOUNTER 2018-01-30 16:45 | Emergency (ER) | payer MEDICARE ==
[2018-01-30 17:51] VITALS: BP 132/74
--- NOTE | 2018-01-30 18:38 | UC ---
Lower Extremity/Ankle HPI - HPI Summary HPI Summary: 63-year-old female with history of Parkinson's and osteoporosis presents with pain, bruising, and tenderness to her right fifth toe after accidentally hitting it on a wall around 10:30 this morning. She has been able to ambulate and bear weight since the injury. Denies numbness or tingling. - History of Current Complaint Chief Complaint: UCLowerExtremity Stated Complaint: RIGHT PINKY TOE INJURY Time Seen by Provider: 01/30/18 18:07 Hx Obtained From: Patient ?: No Onset/Duration: Sudden Onset Severity Initially: Mild Severity Currently: Mild Pain Intensity: 6 Aggravating Factor(s): Ambulation Alleviating Factor(s): Rest Able to Bear Weight: Yes - Allergies/Home Medications Allergies/Adverse Reactions: Allergies Allergy/AdvReac Type Severity Reaction Status Date / Time erythromycin base Allergy Hives/Diff. Verified 01/30/18 17:52 Breathing/I tching meperidine [From Demerol] Allergy See Comment Verified 01/30/18 17:52 ampicillin AdvReac Nausea Verified 01/30/18 17:52 Home Medications: Home Medications Acetaminophen [Tylenol Extra Strength] 500 mg PO ONCE PRN 01/30/18 [History Confirmed 01/30/18] Ibuprofen TAB* [Advil TAB*] 400 mg PO Q6H PRN 01/30/18 [History Confirmed ] PMH/Surg Hx/FS Hx/Imm Hx - Additional Past Medical History Additional PMH: Osteoporosis Other Neurological History: Parkinson's - Surgical History Surgical History: Yes Surgery Procedure, Year, and Place: J-peg tube for feedings. KIDNEY STONES REMOVED 2005 - Family History Known Family History: Positive: Cardiac Disease - Social History Occupation: Disabled Lives: With Family Alcohol Use: None Substance Use Type: None Smoking Status (MU): Never Smoked Tobacco Review of Systems Constitutional: Negative Skin: Bruising Motor: Negative Neurovascular: Negative Musculoskeletal: Other: - See history of present illness Is Patient Immunocompromised?: No All Other Systems Reviewed And Are Negative: Yes Physical Exam Triage Information Reviewed: Yes Appearance: Well-Appearing, No Pain Distress, Well-Nourished Vital Signs: Initial Vital Signs Temp 98.4 F 01/30/18 17:43 Pulse 69 01/30/18 17:43 Resp 16 01/30/18 17:43 BP 132/74 01/30/18 17:43 Pulse Ox 100 01/30/18 17:43 Vital Signs Reviewed: Yes Respiratory: Positive: Lungs clear, Normal breath sounds, No respiratory distress Cardiovascular: Positive: RRR, No Murmur, Pulses Normal, Brisk Capillary Refill Musculoskeletal: Positive: Strength Intact, ROM Intact, Other: - Tenderness to the proximal phalanx of the right fifth toe. No obvious deformity. Neurological: Positive: Alert, Other: - Sensation intact distally Skin: Positive: Other - Ecchymosis of the right fifth toe Diagnostics - Radiology No standard instances Xray Interpretation: Positive (See Comments) Radiology Interpretation Completed By: ED Physician - Nondisplaced transverse fracture proximal phalanx right 5th toe Lower Extremity Course/Dx - Course Course Of Treatment: 63 year old female presents with right 5th toe pain and swelling s/p striking foot on wall. X-ray shows nondisplaced fracure of right 5th proximal phalanx. Toe was sherman taped and patient placed in post-op shoe. Referral to orthopedic surgery for follow up care. - Differential Dx/Diagnosis Differential Diagnosis/HQI/PQRI: Contusion, Fracture (Closed), Sprain, Tendonitis Provider Diagnoses: Nondisplaced transverse fracture proximal phalanx right 5th toe Discharge - Sign-Out/Discharge Documenting (check all that apply): Patient Departure All imaging exams completed and their final reports reviewed: No - Discharge Plan Condition: Stable Disposition: HOME Patient Education Materials: Toe Fracture (ED) Referrals: Carlos Loyola MD [Primary Care Provider] - Diamante Galvez MD [Medical Doctor] - 5 Days (Call for appointment.) Additional Instructions: The x-ray performed in the clinic today shows evidence of a fracture of your right pinky toe. The x-ray will be reviewed by the radiologist tomorrow and if there are any changes in your treatment we will contact you. Keep the toe sherman taped to the toe next to it and wear the postop shoe that was given to you until you follow up with the orthopedic surgeon. Rest the foot as much as possible however you may continue to ambulate and bear weight as tolerated. Apply ice to the affected area for 15-20 minutes 3-4 times a day. Keep the foot elevated when sitting in order to reduce any swelling. He may take an eaxb-ggu-axsevkv pain medication such as acetaminophen (Tylenol) or ibuprofen (Advil, Motrin) according to directions as needed for pain. I given you a referral to orthopedic surgery, Dr. Cortes, he will need to call to make an appointment within the next 7 days for reevaluation. Your blood pressure was slightly elevated in the clinic today. You should make an appointment with your primary care provider to have this rechecked. - Billing Disposition and Condition Condition: STABLE Disposition: Home
--- NOTE | 2018-01-31 07:03 | RAD ---
INDICATION: Right foot injury. TECHNIQUE: 3 views of the right foot were obtained. FINDINGS: There is soft tissue swelling around the fifth toe and distal fifth metatarsal. There is an oblique nondisplaced fracture involving the distal aspect of the fifth proximal phalanx which may extend to the distal articular margin. No other fractures are seen. Joint spaces appear maintained. IMPRESSION: OBLIQUE NONDISPLACED FRACTURE OF THE FIFTH PROXIMAL PHALANX. R0
--- NOTE | 2018-01-31 13:05 | UC ---
- Progress Note Progress Note: The radiologist read the x-ray from January 30, 2018 has a toe fracture. This is the same interpretation as the provider and the treatment provided for a toe fracture. Discharge - Sign-Out/Discharge Documenting (check all that apply): Patient Departure All imaging exams completed and their final reports reviewed: Yes - Discharge Plan Condition: Stable Disposition: HOME Patient Education Materials: Toe Fracture (ED) Referrals: Carlos Loyola MD [Primary Care Provider] - Diamante Galvez MD [Medical Doctor] - 5 Days (Call for appointment.) Additional Instructions: The x-ray performed in the clinic today shows evidence of a fracture of your right pinky toe. The x-ray will be reviewed by the radiologist tomorrow and if there are any changes in your treatment we will contact you. Keep the toe sherman taped to the toe next to it and wear the postop shoe that was given to you until you follow up with the orthopedic surgeon. Rest the foot as much as possible however you may continue to ambulate and bear weight as tolerated. Apply ice to the affected area for 15-20 minutes 3-4 times a day. Keep the foot elevated when sitting in order to reduce any swelling. He may take an jtnb-czr-qumabfc pain medication such as acetaminophen (Tylenol) or ibuprofen (Advil, Motrin) according to directions as needed for pain. I given you a referral to orthopedic surgery, Dr. Cortes, he will need to call to make an appointment within the next 7 days for reevaluation. Your blood pressure was slightly elevated in the clinic today. You should make an appointment with your primary care provider to have this rechecked. - Billing Disposition and Condition Condition: STABLE Disposition: Home
--- NOTE | 2018-02-01 20:57 | UC ---
Discharge - Sign-Out/Discharge Documenting (check all that apply): Post-Discharge Follow Up All imaging exams completed and their final reports reviewed: Yes - Discharge Plan Condition: Stable Disposition: HOME Patient Education Materials: Toe Fracture (ED) Referrals: Carlos Loyola MD [Primary Care Provider] - Diamante Galvez MD [Medical Doctor] - 5 Days (Call for appointment.) Additional Instructions: The x-ray performed in the clinic today shows evidence of a fracture of your right pinky toe. The x-ray will be reviewed by the radiologist tomorrow and if there are any changes in your treatment we will contact you. Keep the toe sherman taped to the toe next to it and wear the postop shoe that was given to you until you follow up with the orthopedic surgeon. Rest the foot as much as possible however you may continue to ambulate and bear weight as tolerated. Apply ice to the affected area for 15-20 minutes 3-4 times a day. Keep the foot elevated when sitting in order to reduce any swelling. He may take an unwt-ewa-nassrgq pain medication such as acetaminophen (Tylenol) or ibuprofen (Advil, Motrin) according to directions as needed for pain. I given you a referral to orthopedic surgery, Dr. Cortes, he will need to call to make an appointment within the next 7 days for reevaluation. Your blood pressure was slightly elevated in the clinic today. You should make an appointment with your primary care provider to have this rechecked. - Billing Disposition and Condition Condition: STABLE Disposition: Home
== END 2018-01-30 18:51 | disposition home or self-care (01) ==
LOC: UCCORT 16:45
DX: S92.514A Nondisplaced fracture of proximal phalanx of right lesser toe(s), initial encounter for closed fracture (principal); G20 Parkinson's disease; M81.0 Age-related osteoporosis without current pathological fracture; W22.8XXA Striking against or struck by other objects, initial encounter; Y92.9 Unspecified place or not applicable; Z88.1 Allergy status to other antibiotic agents; Z88.5 Allergy status to narcotic agent
CPT/HCPCS: 99213; G0463

== ENCOUNTER 2019-03-29 13:10 | Emergency (ER) | payer MEDICARE ==
[2019-03-29 13:43] VITALS: BP 103/59
--- NOTE | 2019-03-29 14:14 | ED ---
HPI Chest Pain - HPI Summary HPI Summary: 64 yr old female with the complaint of left side rib pain. The patient has bumped into her bow rehairer twice in the past three days. last time she hit the left ribs was yesterday. She has pain that is moderate, and worse with movement. No SOB. She has parkinsons and it is difficult for her to stay still. No other complaints. - History of Current Complaint Chief Complaint: UCTrauma Time Seen by Provider: 03/29/19 13:47 Pain Intensity: 4 - Allergy/Home Medications Allergies/Adverse Reactions: Allergies Allergy/AdvReac Type Severity Reaction Status Date / Time erythromycin base Allergy Hives/Diff. Verified 12/13/18 13:00 Breathing/I tching meperidine [From Demerol] Allergy See Comment Verified 12/13/18 13:00 ampicillin AdvReac Nausea Verified 12/13/18 13:00 Home Medications: Home Medications Cyanocobalamin (Vitamin B-12) [Vitamin B12] 2,500 mcg PO DAILY 03/29/19 [ History Confirmed 03/29/19] Diazepam TAB(NF) [Valium TAB(NF)] 2 mg PO BID 03/29/19 [History Confirmed ] Diclofenac 1% GEL (NF) [Voltaren 1% GEL (NF)] 1 applic TOPICAL DAILY PRN [History Confirmed 03/29/19] Docusate CAP* [Colace Cap*] 100 mg PO DAILY 03/29/19 [History Confirmed 03/29/19 ] Kanwal Root 275 mg PO DAILY 03/29/19 [History Confirmed 03/29/19] Magnesium Oxide [Magnesium] 400 mg PO DAILY 03/29/19 [History Confirmed 03/29/19 ] Neomycin/Bacitracin/Polymyxinb [Antibiotic Ointment] 28 gm TP QID 03/29/19 [ History Confirmed 03/29/19] Nystatin CREAM* [Nystatin Cream*] 1 applic TOPICAL QID 03/29/19 [History Confirmed 03/29/19] Pyridoxine TAB* [Vitamin B6 TAB*] 100 mg PO DAILY 03/29/19 [History Confirmed ] Rotigotine [Neupro] 6 mg TD 03/29/19 [History] PMH/Surg Hx/FS Hx/Imm Hx Endocrine/Hematology History: Denies: Hx Diabetes, Hx Thyroid Disease Cardiovascular History: Denies: Hx Hypertension, Hx Pacemaker/ICD Respiratory History: Denies: Hx Asthma, Hx Chronic Obstructive Pulmonary Disease (COPD) GI History: Denies: Hx Ulcer History: Denies: Hx Dialysis, Hx Renal Disease Sensory History: Neurological History: Reports: Other Neuro Impairments/Disorders - Parkinson's Psychiatric History: Denies: Hx Panic Disorder - Surgical History Surgery Procedure, Year, and Place: J-peg tube for feedings. KIDNEY STONES REMOVED 2005 - Immunization History Date of Influenza Vaccine: did not receive Infectious Disease History: Yes Infectious Disease History: Reports: Hx Shingles Denies: Hx Hepatitis, Hx Human Immunodeficiency Virus (HIV), Traveled Outside the [place] in Last 30 Days - Family History Known Family History: Positive: Cardiac Disease - Social History Alcohol Use: None Hx Substance Use: No Substance Use Type: Reports: None Hx Tobacco Use: No Smoking Status (MU): Never Smoked Tobacco Review of Systems Constitutional: Negative Positive: Other - left rib pain All Other Systems Reviewed And Are Negative: Yes Physical Exam Triage Information Reviewed: Yes Vital Signs On Initial Exam: Initial Vitals Temp Pulse Resp BP Pulse Ox 98.1 F 80 20 103/59 91 03/29/19 13:33 03/29/19 13:33 03/29/19 13:33 03/29/19 13:33 03/29/19 13:33 Vital Signs Reviewed: Yes Appearance: Positive: Well-Appearing, No Pain Distress Skin: Positive: Warm, Skin Color Reflects Adequate Perfusion Head/Face: Positive: Normal Head/Face Inspection Eyes: Positive: EOMI ENT: Positive: Normal ENT inspection Neck: Positive: Nontender Respiratory/Lung Sounds: Positive: Clear to Auscultation, Breath Sounds Present , Other - tenderness over the righ tlower ribss. Cardiovascular: Positive: RRR, Pulses are Symmetrical in both Upper and Lower Extremities. Negative: Murmur Abdomen Description: Positive: Nontender, Other: - She has a J tube present working on a pump for meds. Musculoskeletal: Positive: Strength/ROM Intact Neurological: Positive: Sensory/Motor Intact, Alert, Oriented to Person Place, Time, CN Intact II-III, Normal Gait, Other - she has movement at rest of her body that are not controllable. Diagnostics - Vital Signs Vital Signs Temp Pulse Resp BP Pulse Ox 03/29/19 13:33 98.1 F 80 20 103/59 91 - Laboratory Lab Statement: Any lab studies that have been ordered have been reviewed, and results considered in the medical decision making process. - Radiology left rib, chest Radiology Interpretation Completed By: Radiologist - non displaced left rib fx Chest Pain Course/Dx - Course Course Of Treatment: 64 yr old with non displaced 8 rib fx. Non tender abdomen. DC home. Tylenol and motrin for pain. FU with PMD> - Diagnoses Provider Diagnoses: Left rib fracture, Closed traumatic nondisplaced fracture of rib Discharge ED - Sign-Out/Discharge Documenting (check all that apply): Patient Departure All imaging exams completed and their final reports reviewed: Yes - Discharge Plan Condition: Good Disposition: HOME Prescriptions: Ibuprofen TAB* [Motrin TAB* 400 MG] 400 mg PO Q6H PRN #20 tab PRN Reason: Pain - Mild Patient Education Materials: Rib Fracture (ED) Referrals: Carlos Loyola MD [Primary Care Provider] - - Billing Disposition and Condition Condition: GOOD Disposition: Home
== END 2019-03-29 14:52 | disposition home or self-care (01) ==
LOC: UCCORT 13:10
DX: S22.32XA Fracture of one rib, left side, initial encounter for closed fracture (principal); G20 Parkinson's disease; Z88.0 Allergy status to penicillin; Z88.5 Allergy status to narcotic agent; Z88.1 Allergy status to other antibiotic agents; Z79.899 Other long term (current) drug therapy; W22.8XXA Striking against or struck by other objects, initial encounter; Y92.9 Unspecified place or not applicable
CPT/HCPCS: 99212; G0463

== ENCOUNTER 2019-05-27 17:10 | Emergency (ER) | payer MEDICARE ==
--- OUTSIDE RECORDS SUMMARY | 2019-05-27 17:19 | XMS REPORT | Continuity of Care Document ---
:1955 External Reference #:[id number] Author Name Kai Saeed D.O. Address [address] [place] [address] Care Team Providers Name Role Phone HCP/LW on file Care Team Information Rn Lab Unavailable Mame Paez MD - Neurology Care Team Information Rn Lab [facility] - Care Team Information Rn Lab Nutrition, Education Juan M Ochoa MD - Vascular & Care Team Information Rn Lab Interventional Radiology Problems Active Problems Provider Date Osteoporosis Carlos Loyola M.D. Onset: 10/13/2014 Vitamin D deficiency Carlos Loyola M.D. Onset: 10/13/2014 Parkinson's disease Carlos Loyola M.D. Onset: 10/13/2014 Anxiety state Carlos Loyola M.D. Onset: 10/13/2014 Uterovaginal prolapse Ann Casas PA Onset: 09/13/2016 Social History Type Date Description Comments Sex Unknown Tobacco Use Reviewed: 05/13/14 Never Smoked Cigarettes Smoking Status Reviewed: 05/03/19 Never Smoked Cigarettes Tobacco Use Start: Unknown Non Smoker Exercise Type/Frequency Exercises regularly Sun Exposure Uses sunscreen Seat Belt/Car Seat Seat Belt Use - Yes Allergies, Adverse Reactions, Alerts Active Allergies Reaction Severity Comments Date Ampicillin nausea 05/13/2014 Erythromycin 12/22/2015 Demerol Interacts w Parkinson's Moderate Dr. Schwartz recommends 10/05/2018 Med that she not have this med Medications Active Medications SIG Qnty Indications Ordering Date Provider Oxycodone HCL take 1/2 tablet by 45tabs G20 Kai Saeed, 05/22/2019 5mg mouth every 4 hours D.O. Tablets for breakthrough pain maximum daily dose of 3 per day S22.31xA Nystatin Apply To The Affected 30units K94.22 co, 04/10/2019 [id number] Area Around Stoma Site Bentio Gonzalez Cream Three Times Daily Until Clear, Resume as Needed Miralax 1 capful/17 grams of K59.00 Unknown 12/17/2018 Powder the powder in 8 ounces of water, once daily, as needed for bm management Colace 1 by mouth once a day Unknown 12/16/2018 100mg Capsules to keep stools soft Insentive Spirometry Follow instructions 1units 0 Nir, 10/05/2018 provided Benito Gonzalez HM Vitamin B6 take 2 tablets by Unknown 03/15/2018 100mg mouth daily Tablets Ibuprofen TK 1 T PO Q 8 H prn Unknown 02/28/2018 800mg Tablets Tylenol Extra as directed, as needed Unknown 02/19/2018 Strength for pain 500mg Tablets Gabapentin Take 2-3 Capsules By 630caps Nir, 12/09/2017 300mg Mouth Every Morning Benito Gonzalez And Every Afternoon And 3 Capsules Every Evening Diclofenac Sodium apply up to 1 gram 100gm M79.642 yobany, 10/09/2017 1% 4x/day as needed to Benito Gonzalez Gel base of left thumb Vitamin B12 take 1 sublingual Unknown 05/19/2017 1000mcg tablet daily Tablets ER Duopa use via pump and G20 Unknown 05/19/2017 4.63-20mg/ml G-tube; use as Suspension directed, 16 hours/day Carbidopa-Levodopa 1 tablet nightly as Unknown 05/19/2017 needed backup for pump 25-100mg Tablets Neupro daily G20 Unknown 04/11/2017 6mg/24HR Patches 24HR Diazepam take 1/2 to 1 tablet 180tabs Nir, 12/22/2015 2mg Tablets by mouth every 4 hours Benito Gonzalez as needed Metamucil one capsule daily for Unknown 12/21/2015 0.52gm constipation Capsules Calcium Carbonate po daily prn Unknown 08/27/2015 600mg Tablets Vitamin D3 1 by mouth every day Nir, 07/12/2015 5000Unit for vitamin d Benito Gonzalez Capsules replacement Buspirone HCL take 1 tablet by mouth 180tabs F41.9 Nir, 01/03/2015 15mg twice daily for Benito Gonzalez Tablets anxiety Prolia Inject 60MG 1units M81.0 Nir, 10/13/2014 60mg/ml Soln Subcutaneously Every 6 Benito Gonzalez Prefill Syringe Months (Given AT Prescribers Office) Fish Oil 1 by mouth every day Unknown 05/12/2014 1200mg Capsules Carbidopa-Levodopa ER 1 tablet nightly as G20 Unknown 05/12/2014 needed backup for pump 50-200mg Tablets ER History Medications Tylenol With 1 by mouth 21tabs S22.32xD Kai Saeed, 04/13/2019 - Codeine #3 three times a D.O. 05/21/2019 day as needed 300-30mg Tablets Medications Administered in Office Medication SIG Qnty Indications Ordering Provider Date SC/Im Injections Nurse's Schedule 07/25/2018 Injection SC/Im Injections Carlos Loyola M.D. 01/11/2018 Injection SC/Im Injections Nurse's Schedule 07/10/2017 Injection SC/Im Injections Nurse's Schedule 01/04/2017 Injection SC/Im Injections Nurse's Schedule 07/06/2016 Injection SC/Im Injections Nurse's Schedule 01/05/2016 Injection SC/Im Injections Nurse's Schedule 07/06/2015 Injection SC/Im Injections Carlos Loyola M.D. 01/03/2015 Injection Immunizations CPT Code Status Date Vaccine Lot # [id number] Given 01/14/2019 Influenza Vaccine, Inactivated, Subunit, [id number] Adjuvanted, For Intrmusc 63930 Given 08/12/2014 Zostavax [id number] 05048 Given 08/12/2014 Adacel or Boostrix, TDaP [id number] U-Flu Refused 02/07/2018 Influenza,Unspecified [id number] Refused 02/07/2018 Pneumococcal Immunization 94518 Refused 02/07/2018 Prevnar 13 [id number] Refused 09/08/2017 Shingrix Zoster (Shingles) Vaccine (HZV) Recomb,Subnit,Adjuvanted Vital Signs Date Vital Result Comment 05/22/2019 3:03pm Weight 133.00 lb w/shoes 05/03/2019 9:16am BP Systolic 110 mmHg BP Diastolic 72 mmHg Height 65 inches 5'5" Weight 132.00 lb w/shoes BMI (Body Mass Index) 22.0 kg/m2 Results Test Acquired Facility Test Result H/L Range Note Date GFR/Bsa pred.black 12/16/2018 N2N/CCD Import GFR/Bsa >60 >60 SerPl MDRD-ArVRat pred.black SerPl MDRD-ArVRat Estimated 12/16/2018 N2N/CCD Import Estimated >60 >60 glomerular glomerular filtration rate filtration rate (GFR) non-Afr (GFR) non- Serum or plasma 12/16/2018 N2N/CCD Import Serum or plasma 0.7 0.6-1.3 creatinine creatinine measurement measurement (mass/volum (mass/volume) Serum or plasma 12/16/2018 N2N/CCD Import Serum or plasma 10 7-18 urea nitrogen urea nitrogen measurement measurement (mass/vo (mass/volume) Serum or plasma 12/16/2018 N2N/CCD Import Serum or plasma 97 74-106 glucose glucose measurement measurement (mass/volume) (mass/volume) Automated blood 12/16/2018 N2N/CCD Import Automated blood 0.00 nucleated nucleated erythrocyte count erythrocyte count (count (count/volume) Automated blood 12/16/2018 N2N/CCD Import Automated blood 0.03 immature immature granulocyte count granulocyte count (number (number/volume) Automated blood 12/16/2018 N2N/CCD Import Automated blood 0.03 0.0-0.1 basophil count basophil count (number/volume) (number/volume) Automated blood 12/16/2018 N2N/CCD Import Automated blood 0.24 0.0-0.5 eosinophil count eosinophil count Blood monocytes 12/16/2018 N2N/CCD Import Blood monocytes 0.72 0.3-0.9 automated count automated count (number/volume) (number/volume) Automated blood 12/16/2018 N2N/CCD Import Automated blood 2.42 1.0-4.0 lymphocyte count lymphocyte count (number/volume) (number/volume) Absolute 12/16/2018 N2N/CCD Import Absolute 4.85 1.8-7.0 neutrophil count neutrophil count Automated blood 12/16/2018 N2N/CCD Import Automated blood 0.0 < 10/ 100 nucleated nucleated WBC erythrocyte count erythrocyte count as per as percentage of total leukocytes Automated blood 12/16/2018 N2N/CCD Import Automated blood 0.4 0.0-5.0 immature immature granulocyte count granulocyte count as perc as percentage of total leukocytes Automated basophil 12/16/2018 N2N/CCD Import Automated 0.4 0.0-1.1 % basophil % Automated 12/16/2018 N2N/CCD Import Automated 2.9 0.0-6.6 eosinophil % eosinophil % Serum or plasma 12/16/2018 N2N/CCD Import Serum or plasma 14.2 urea urea nitrogen/creatinin nitrogen/creatini e mass rati ne mass ratio Sodium SerPl-sCnc 12/16/2018 N2N/CCD Import Sodium SerPl-sCnc 139 136- 145 Serum or plasma 12/16/2018 N2N/CCD Import Serum or plasma 4.1 3.5-5.1 potassium potassium measurement measurement Serum or plasma 12/16/2018 N2N/CCD Import Serum or plasma 108 High 98- 107 chloride chloride measurement measurement Co2 SerPl-sCnc 12/16/2018 N2N/CCD Import Co2 SerPl-sCnc 24 21-32 Serum or plasma 12/16/2018 N2N/CCD Import Serum or plasma 7 Low 8-16 anion gap anion gap Serum or plasma 12/16/2018 N2N/CCD Import Serum or plasma 8.8 8.5-10.1 calcium calcium measurement measurement (mass/volume) (mass/volume) Serum or plasma 12/16/2018 N2N/CCD Import Serum or plasma 6.9 6.4-8.2 protein protein measurement measurement (mass/volume) (mass/volume) Serum or plasma 12/16/2018 N2N/CCD Import Serum or plasma 3.5 3.4-5.0 albumin albumin measurement measurement (mass/volume) (mass/volume) Serum globulin 12/16/2018 N2N/CCD Import Serum globulin 3.4 1.9-4.3 measurement by measurement by calculation calculation (mass/vo (mass/volume) Serum or plasma 12/16/2018 N2N/CCD Import Serum or plasma 1.0 albumin/globulin albumin/globulin mass ratio mass ratio Serum or plasma 12/16/2018 N2N/CCD Import Serum or plasma 0.4 0.2-1.0 total bilirubin total bilirubin measurement (mass/ measurement (mass/volume) Serum or plasma 12/16/2018 N2N/CCD Import Serum or plasma 25 15-37 aspartate aspartate aminotransferase aminotransferase measure measurement (enzymatic activity/volume) Serum or plasma 12/16/2018 N2N/CCD Import Serum or plasma 9 Low 12-78 alanine alanine aminotransferase aminotransferase measureme measurement (enzymatic activity/volume) Serum or plasma 12/16/2018 N2N/CCD Import Serum or plasma 87 45-117 alkaline alkaline phosphatase phosphatase measurement ( measurement (enzymatic activity/volume) Serum or plasma 12/16/2018 N2N/CCD Import Serum or plasma 241 56-289 lipase measurement lipase (enzymatic acti measurement (enzymatic activity/volume) Bacteria detection 12/16/2018 N2N/CCD Import Bacteria Very Few None Seen in urine sediment detection in by light micr urine sediment by light microscopy Epithelial cells 12/16/2018 N2N/CCD Import Epithelial cells Very Few None Seen detection in urine detection in sediment by li urine sediment by light microscopy Urine sediment 12/16/2018 N2N/CCD Import Urine sediment 0-2 0-7 leukocyte count by leukocyte count microscopy (numb by microscopy (number/high power field) Automated urine 12/16/2018 N2N/CCD Import Automated urine 0-2 0-2 sediment sediment erythrocyte count erythrocyte count by micr by microscopy (number/high power field) Urine leukocyte 12/16/2018 N2N/CCD Import Urine leukocyte Small High Negative esterase detection esterase by automated te detection by automated test strip Urine nitrite 12/16/2018 N2N/CCD Import Urine nitrite Negative Negative detection by detection by automated test automated test strip strip Urine urobilinogen 12/16/2018 N2N/CCD Import Urine 0.2 0.2-1.0 measurement urobilinogen (units/volume) by measurement t (units/volume) by test strip Urine protein 12/16/2018 N2N/CCD Import Urine protein Negative Negative measurement by measurement by automated test automated test strip strip (mass/volume) Urine pH 12/16/2018 N2N/CCD Import Urine pH 6.5 6.5-7.5 measurement by measurement by automated test automated test strip strip Urine hemoglobin 12/16/2018 N2N/CCD Import Urine hemoglobin Negative Negative detection by detection by automated test automated test strip strip Specific gravity 12/16/2018 N2N/CCD Import Specific gravity <=1.005 Low 1.010-1.0 of Urine by of Urine by 30 Automated test Automated test strip strip Urine ketones 12/16/2018 N2N/CCD Import Urine ketones Negative Negative measurement by measurement by automated test automated test strip strip (mass/volume) Urine total 12/16/2018 N2N/CCD Import Urine total Negative Negative bilirubin bilirubin detection by detection by automated test automated test strip Urine glucose 12/16/2018 N2N/CCD Import Urine glucose Negative Negative measurement by measurement by automated test automated test strip strip (mass/volume) Urine appearance 12/16/2018 N2N/CCD Import Urine appearance Clear Clear determination determination Urine color 12/16/2018 N2N/CCD Import Urine color Straw Yellow determination determination Urinalysis With 12/16/2018 [facility]. Urine Color STRAW Yellow 1 Microscopic LABORATORY [phone] Urine Clarity CLEAR Clear Urine Glucose - Dipstick NEGATIVE mg/dL Negative Urine Bilirubin - Dipstick NEGATIVE Negative Urine Ketone NEGATIVE mg/dL Negative Urine Specific [place] <= 1.005 Low 1.010-1.030 Urine Blood NEGATIVE Negative Urine PH 6.5 Normal 6.5-7.5 Urine Protein - Dipstick NEGATIVE mg/dL Negative Urine Urobilinogen - Dipstick 0.2 E.U./dL Normal 0.2-1.0 Urine Nitrite - Dipstick NEGATIVE Negative Urine Leuk Esterase SMALL Abnormal Negative Urine RBC 0-2 rbc/hpf 0-2 Urine WBC 0-2 wbc/hpf 0-7 Urine Epithelial Cells VERY FEW /lpf None Seen Urine Bacteria VERY FEW None Seen Source: URINE, CLEAN CAT <SEE NOTE> 2 Automated 12/16/2018 N2N/CCD Import Automated 8.7 4.3-13.2 monocyte % monocyte % Automated blood 12/16/2018 N2N/CCD Import Automated blood 29.2 20.0- 42.0 lymphocytes/100 lymphocytes/100 leukocytes leukocytes Automated blood 12/16/2018 N2N/CCD Import Automated blood 58.4 40.4- 72.8 neutrophils/100 neutrophils/100 leukocytes leukocytes Automated blood 12/16/2018 N2N/CCD Import Automated blood 10.1 8.9-12.4 platelet mean platelet mean volume volume measurement measurement Automated 12/16/2018 N2N/CCD Import Automated 14.3 11.7-14.4 erythrocyte erythrocyte distribution distribution width ratio width ratio Automated 12/16/2018 N2N/CCD Import Automated 43.8 36-47 erythrocyte erythrocyte distribution distribution width width Automated blood 12/16/2018 N2N/CCD Import Automated blood 358 155-360 platelet count platelet count (count/volume) (count/volume) Automated 12/16/2018 N2N/CCD Import Automated 29.3 Low 30.8-34.3 erythrocyte mean erythrocyte mean corpuscular corpuscular hemoglobin hemoglobin concentration measurement (mass/volume) Automated 12/16/2018 N2N/CCD Import Automated 24.5 Low 25.9-32.7 erythrocyte mean erythrocyte mean corpuscular corpuscular hemoglobin hemoglobin (mass per erythrocyte) Automated 12/16/2018 N2N/CCD Import Automated 83.6 80.9-99.0 erythrocyte mean erythrocyte mean corpuscular corpuscular volume (MCV volume (MCV) measurement Hct VFr Bld Auto 12/16/2018 N2N/CCD Import Hct VFr Bld Auto 36.2 36.0- 46.1 Blood hemoglobin 12/16/2018 N2N/CCD Import Blood hemoglobin 10.6 Low 11.6 -15.8 measurement measurement (mass/volume) (mass/volume) Blood 12/16/2018 N2N/CCD Import Blood 4.33 3.90-5.40 erythrocytes erythrocytes automated count automated count (number/volume) (number/volume) Automated 12/16/2018 N2N/CCD Import Automated 8.3 3.1-10.7 leukocyte count leukocyte count (number/volume) (number/volume) CBS W/Automated 12/16/2018 [facility]. White Blood Count 8.3 Normal 3.1-10.7 Diff LABORATORY K/uL [phone] Red Blood Count 4.33 M/uL Normal 3.90-5.40 Hemoglobin 10.6 gm/dL Low 11.6-15.8 Hematocrit 36.2 % Normal 36.0-46.1 Mean Cell Volume 83.6 fl Normal 80.9-99.0 Mean Corpuscular HGB 24.5 pg Low 25.9-32.7 Mean Corpuscular HGB Conc 29.3 g/dL Low 30.8-34.3 Platelet Count 358 K/uL Normal 155-360 Red Cell Distri Width SD 43.8 fl Normal 36-47 Red Cell Distri Width %CV 14.3 % Normal 11.7-14.4 Mean Platelet Volume 10.1 fl Normal 8.9-12.4 Neut% 58.4 % Normal 40.4-72.8 Lymph % 29.2 % Normal 20.0-42.0 [place] % 8.7 % Normal 4.3-13.2 Eo% 2.9 % Normal 0.0-6.6 Bas% 0.4 % Normal 0.0-1.1 Immature Grans 0.4 % Normal 0.0-5.0 NRBC % 0.0 /100WBC < 10/ 100 WBC Neut# 4.85 K/uL Normal 1.8-7.0 Lymph # 2.42 K/uL Normal 1.0-4.0 [place] # 0.72 K/uL Normal 0.3-0.9 Eos # 0.24 K/uL Normal 0.0-0.5 Baso # 0.03 K/uL Normal 0.0-0.1 Immature Grans Absolute 0.03 K/uL NRBC # 0.00 K/uL Stool occult blood 12/16/2018 N2N/CCD Import Stool occult Negative Negative blood Laboratory test 12/16/2018 [facility]. Occult NEGATIVE Negative 3 finding LABORATORY Blood,Stool [phone] 1 POSS KIDNEY STONE 2 URINE, CLEAN CATCH 3 Method: Sanitors Hemoccult Card Procedures Date Code Description Status 05/03/2019 84131 X-Ray Ribs Two Views Completed 04/11/2019 63195 X-Ray Ribs Two Views Completed 04/11/2019 75733 X-Ray Ribs 2 VWS Prof Fee Completed 04/11/2019 82131 X-Ray Ribs Two Views Completed 12/11/2018 [id number] Mammogram Completed 12/06/2012 [id number] Colonoscopy Completed Medical Devices Description No Information Available Encounters Type Date Location Provider Dx Diagnosis Office Visit 05/03/2019 Main Office Kai Saeed D.O. 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 S22.32xD Fracture of one rib, left side, subs for fx w routn heal S22.39xA Fracture of one rib, unsp side, init for clos fx Z79.899 Other skilled nursing (current) drug therapy Office Visit 04/11/2019 1:20p Main Office Letitia Nye, S22.32xD Fracture of one P.A. rib, left side, subs for fx w routn heal S22.39xA Fracture of one rib, unsp side, init for clos fx M81.0 Age-related osteoporosis w/o current pathological fracture G20 Parkinson's disease R26.0 Ataxic gait Office Visit 12/19/2018 2:30p Main Office Carlos Loyola, R10.84 Generalized M.D. abdominal pain K59.00 Constipation, unspecified Z93.1 Gastrostomy status Office Visit 11/23/2018 11:30a Main Office Carlos Loyola, K94.22 Gastrostomy M.D. infection L03.311 Cellulitis of abdominal wall Z12.31 Encntr screen mammogram for malignant neoplasm of breast Assessments Date Code Description Provider 05/22/2019 G20 Parkinson's disease Kai Saeed D.O. 05/22/2019 R26.0 Ataxic gait Kai Saeed D.O. 05/22/2019 S22.31xD Fracture of one rib, right side, subsequent Kai Saeed D.O. encounter for fracture with routine healing 05/03/2019 G20 Parkinson's disease Kai Saeed D.O. 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 05/03/2019 R26.0 Ataxic gait Kai Saeed D.O. 05/03/2019 N81.2 Incomplete uterovaginal prolapse Kai Saeed D.O. 05/03/2019 S22.31xA Fracture of one rib, right side, initial Kai Saeed D.O. encounter for closed fracture 05/03/2019 R29.6 Repeated falls Kai Saeed D.O. 05/03/2019 Z91.81 History of falling Kai Saeed D.O. 05/03/2019 R07.81 Pleurodynia Kai Saeed D.O. 05/03/2019 Z68.22 Body mass index (BMI) 22.0-22.9, adult Kai Saeed D.O. 04/13/2019 G20 Parkinson's disease Kai Saeed D.O. 04/13/2019 S22.32xD Fracture of one rib, left side, subsequent Kai Saeed D.O. encounter for fracture with routine healing 04/13/2019 S22.39xA Fracture of one rib, unspecified side, Kai Saeed D.O. initial encounter for closed fracture 04/13/2019 Z79.899 Other skilled nursing (current) drug therapy Kai Saeed D.O. 04/11/2019 S22.32xD Fracture of one rib, left side, subsequent Carlos Loyola M.D. encounter for fracture with routine healing 04/11/2019 S22.32xD Fracture of one rib, left side, subsequent Letitia Nye , P.A. encounter for fracture with routine healing 04/11/2019 S22.39xA Fracture of one rib, unspecified side, Letitia Nye, P.A. initial encounter for closed fracture 04/11/2019 M81.0 Age-related osteoporosis without current Letitia Nye, P.A. pathological fracture 04/11/2019 G20 Parkinson's disease Letitia Nye, P.A. 04/11/2019 R26.0 Ataxic gait Letitia Nye, P.A. 01/14/2019 Z23 Encounter for immunization Nurse's Schedule 12/19/2018 R10.84 Generalized abdominal pain Carlos Loyola M.D. 12/19/2018 K59.00 Constipation, unspecified Carlos Loyola M.D. 12/19/2018 Z93.1 Gastrostomy status Carlos Loyola M.D. 11/23/2018 K94.22 Gastrostomy infection Carlos Loyola M.D. 11/23/2018 L03.311 Cellulitis of abdominal wall Carlos Loyola M.D. 11/23/2018 Z12.31 Encounter for screening mammogram for Carlos Loyola M.D. malignant neoplasm of Plan of Treatment No Information Available Functional Status Description No Information Available Mental Status Description No Information Available Referrals Refer to Reason for Referral Status Appt Date Juan M Ochoa MD 63yo w/ Parkinson's disease, has J-tube for Closed medication administration. Tube was placed in [place] >1yr ago, was toldat the time no need to have it changed unless problems. The tube is functioning well. She does have some yellowish D/C from the stoma site and a small what looks like inflammatory papule on the right side of it. Assume Management this Problem Only [facility] [address]; [address] [place], [place] [address] [phone]
--- OUTSIDE RECORDS SUMMARY | 2019-05-27 17:19 | XMS REPORT ---
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 3343858 Problem Other specified N89.8 Active 04512269 noninflammatory disorders of vagina ALLERGIES No Information ENCOUNTERS Encounter Location Date Diagnosis [facility] Nov, OBGYN [place], [place] [id number] [facility] Nov, Incomplete uterovaginal OBGYN [facility], prolapse N81.2 [place] [id number] [facility] Oct, Incomplete uterovaginal OBGYN [facility], prolapse N81.2 [place] [id number] [facility] [address] Oct, Incomplete uterovaginal [facility] [place] [id number] prolapse N81.2 [facility] Oct, Incomplete uterovaginal OBGYN [facility], prolapse N81.2 [place] [id number] [facility] Oct, OBGYN [place], [place] [id number] [place] [address] Oct, Incomplete uterovaginal [facility] [place] [id number] prolapse N81.2 [facility] September, Incomplete uterovaginal OBGYN [facility], prolapse N81.2 ; Rectocele [place] [id number] N81.6 and Vaginal enterocele N81.5 [facility] September, OBG[place], [place] [id number] [facility] September, [facility]BG[place], [place] [id number] [facility] September, Incomplete uterovaginal OBGYN [facility], prolapse N81.2 and [place] [id number] Stricture and stenosis of cervix uteri N88.2 [facility] 103 September, Incomplete uterovaginal OBGYN [facility], prolapse N81.2 [place] [id number] [facility] 103 September, Incomplete uterovaginal OBGYN [facility], prolapse N81.2 ; Rectocele [place] [id number] N81.6 and Vaginal enterocele N81.5 [facility] 103 September, Incomplete uterovaginal OBGYN [facility], prolapse N81.2 ; Vaginal [place] [id number] enterocele N81.5 ; Rectocele N81.6 and Encounter for screening for malignant neoplasm of cervix Z12.4 [facility] September, OBG[place] [id number] [facility] Aug, OBG[place], [place] [id number] [facility] Aug, OBG[place] [id number] [facility] 103 Aug, Incomplete uterovaginal OBGYN [facility], prolapse N81.2 ; Rectocele [place] [id number] N81.6 ; Vaginal enterocele N81.5 and Encounter for screening for malignant neoplasm of cervix Z12.4 [facility] Aug, OBGYN [place] [id number] [facility] Aug, Incomplete uterovaginal OBGYN [facility], prolapse N81.2 ; Rectocele [place] [id number] N81.6 and Vaginal enterocele N81.5 [facility] Aug, Incomplete uterovaginal OBGYN [facility], prolapse N81.2 ; Rectocele [place] [id number] N81.6 and Vaginal enterocele N81.5 [facility] May, OBG[place], [place] [id number] [facility] 103 Apr, Incomplete uterovaginal OBGYN [facility], prolapse N81.2 ; Rectocele [place] [id number] N81.6 and Vaginal enterocele N81.5 [facility] 103 Mar, Incomplete uterovaginal OBGYN [facility], prolapse N81.2 ; Rectocele [place] [id number] N81.6 and Vaginal enterocele N81.5 [facility] Mar, OBG[place], [place] [id number] [facility] Feb, OBG[place] [id number] [facility] [address] Feb, Incomplete uterovaginal [place] [id number] prolapse N81.2 ; Rectocele N81.6 and Vaginal enterocele N81.5 [facility] Feb, Incomplete uterovaginal OBGYN [facility], prolapse N81.2 [place] [id number] [facility] Feb, [place]BG[place] [id number] [facility] Feb, OBG[place] [id number] [facility] 103 Feb, [place]BG[place] [id number] [facility] Feb, [place] [id number] [facility] 103 Feb, OBG[place] [id number] [facility] 103 Feb, Incomplete uterovaginal OBGYN [facility], prolapse N81.2 and [place] [id number] Encounter for preprocedural laboratory examination Z01.812 [facility] Jan, OBG[place] [id number] [facility] Jan, [place] [id number] [facility] 103 Dec, [place], [place] [id number] [facility] Nov, OBG[place], [place] [id number] [facility] 103 Nov, Incomplete uterovaginal OBGYN [facility], prolapse N81.2 [place] [id number] [place] [facility] Nov, Incomplete uterovaginal OBGYN [facility], prolapse N81.2 [place] [id number] [facility] 103 Oct, Incomplete uterovaginal OBGYN [facility], prolapse N81.2 [place] [id number] [facility] 103 September, Incomplete uterovaginal OBGYN [facility], prolapse N81.2 [place] [id number] [place] [facility] [address] [facility] September, Incomplete uterovaginal OBGYN [address] [place], prolapse N81.2 [place] [id number] [facility] September, Encounter for OBGYN [facility], gynecological examination [place] [id number] (general) (routine) with abnormal findings Z01.411 ; Encounter for screening for malignant neoplasm of colon Z12.11 ; Incomplete uterovaginal prolapse N81.2 ; Encounter for screening mammogram for malignant neoplasm of breast Z12.31 and Urethral caruncle N36.2 [facility] Jul, OBGYN [facility] [place] [id number] [facility] 103 Jun, Incomplete uterovaginal OBGYN [facility], prolapse N81.2 ; Urethral [place] [id number] caruncle N36.2 and Other specified noninflammatory disorders of vagina N89.8 [facility] 103 Jun, Incomplete uterovaginal OBGYN [facility], prolapse N81.2 and [place] [id number] Urethral caruncle N36.2 [facility] 103 Mar, Incomplete uterovaginal OBGYN [facility], prolapse N81.2 [place] [id number] [facility] 103 Dec, Incomplete uterovaginal OBGYN [facility], prolapse N81.2 [place] [id number] [facility] 103 September, Incomplete uterovaginal OBGYN [facility], prolapse N81.2 and [place] [id number] Postmenopausal atrophic vaginitis N95.2 [facility] 103 Jul, Incomplete uterovaginal OBGYN [facility], prolapse N81.2 [place] [id number] [facility] 103 Apr, Incomplete uterovaginal OBGYN [facility], prolapse N81.2 [place] [id number] [facility] Mar, OBG[place], [place] [id number] [facility] 103 Mar, Incomplete uterovaginal OBGYN [facility], prolapse N81.2 ; [place] [id number] Postmenopausal atrophic vaginitis N95.2 and Acute vaginitis N76.0 [facility] 103 Feb, OBG[place], [place] [id number] [facility] 103 Mar, Incomplete uterovaginal OBGYN [facility], prolapse N81.2 and [place] [id number] Postmenopausal atrophic vaginitis N95.2 [facility] 103 Mar, Incomplete uterovaginal OBGYN [facility], prolapse N81.2 and [place] [id number] Postmenopausal atrophic vaginitis N95.2 [facility] 103 Mar, OBG[place], [place] [id number] [facility] 103 Mar, Incomplete uterovaginal OBGYN [facility], prolapse N81.2 and [place] [id number] Postmenopausal atrophic vaginitis N95.2 [facility] 103 Feb, Incomplete uterovaginal OBGYN [facility], prolapse N81.2 [place] [id number] [facility] 103 Jun, OBG[place], [place] [id number] [facility] 103 May, [place] 625.[address] OBGYN [place], [place] [id number] [facility] 103 Mar, [place] 625.[address] OBGYN [place], [place] [id number] [facility] 103 09 Mar, 2007 VULVAR LESION 624.9 and OBGYN [facility], SKIN DISORDER NOS 709.9 [place] [id number] [facility] 103 05 Mar, 2007 VULVAR LESION 624.9 OBGYN [place], [place] [id number] IMMUNIZATIONS No Known Immunizations SOCIAL HISTORY Never Assessed REASON FOR REFERRAL FUNCTIONAL STATUS PLAN OF CARE VITAL SIGNS MEDICATIONS Unknown Medications PROCEDURES No Known procedures RESULTS No Results REASON FOR VISIT SEPTEMBER 2019 Insurance Providers [facility] Member Patient Patient Patient Patient Patient Subscriber Subscriber Subscriber Group Insurance Plan Plan Plan Plan ID Relationship Address Phone Name Date of ID Name Date of No Type Insurance Insurance Insurance Coverage to Subscriber Address Phone Name Dates AARP [phone] AARP self Maryan [id number] [place] [address] Medicare [phone] Medicare self Maryan [id number] [facility] [address] Medicare [phone] Medicare self Maryan [id number] [facility] [address] Excellus [phone] Excellus Maryan [id number] Blue [id number] 89 Blue [place] 3 Cross/Blue [place] Cross/Blue Shield [address] Shield AETNA [phone] AETNA Maryan [id number] Glezen [phone] [address] Meritain [phone] Meritain self Maryan [id number] [address] [place] [address] [address] [facility] [place] [address] MEDICAL (GENERAL) HISTORY Type Description Date Medical History Rheumatic Fever Medical History Parkinson's Medical History 2005- kidney stones Medical History Osteoporosis Surgical History Kidney Stones 12/17/2005 Surgical History endoscopy 02/16/15 Surgical History radioactive reuptake scheduled for Mar 2015 to 03/13/15 check gastric emptying due to poor levodopa response Surgical History Peg J instertion 05/03/17 Surgical History Vaginal high uterosacral suspension, possible 02/28/18 ant/post colporrhaphy/cysto Hospitalization History childbirth Hospitalization History see above
--- OUTSIDE RECORDS SUMMARY | 2019-05-27 17:19 | XMS REPORT | Continuity of Care Document ---
:1955 External Reference #:[id number] Author Name Mohamud Morrell (transmitted by agent of provider Kai Saeed) Address [address] [place] [address] Care Team Providers Name Role Phone HCP/LW on file Care Team Information Route Sales Person Unavailable Mame Paez MD - Neurology Care Team Information Route Sales Person [facility] - Care Team Information Route Sales Person [phone] Nutrition, Education Juan M Ochoa MD - Vascular & Care Team Information Route Sales Person Interventional Radiology Problems Active Problems Provider Date Osteoporosis Carlos Loyola M.D. Onset: 10/13/2014 Vitamin D deficiency Carlos Loyola M.D. Onset: 10/13/2014 Parkinson's disease Carlos Loyola M.D. Onset: 10/13/2014 Anxiety state Carlos Loyola M.D. Onset: 10/13/2014 Uterovaginal prolapse Ann Casas PA Onset: 09/13/2016 Social History Type Date Description Comments Sex Unknown Tobacco Use Reviewed: 05/13/14 Never Smoked Cigarettes Smoking Status Reviewed: 10/05/18 Never Smoked Cigarettes Tobacco Use Start: Unknown [...] Medications SIG Qnty Indications Ordering Date Provider Viky Apply To The Affected 30units K94.22 co, 04/10/2019 Area Around Stoma Benito Gonzalez [id number]/GM Site Three Times Cream Daily Until Clear, Resume as Needed Miralax 1 capful/17 grams of K59.00 Unknown 12/17/2018 Powder the powder in 8 ounces of water, once daily, as needed for bm management Colace 1 by mouth once a day Unknown 12/16/2018 100mg to keep stools soft Capsules Insentive Follow instructions 1units G20 , 10/05/2018 Spirometry provided Benito Gonzalez HM Vitamin B6 take 2 tablets by Unknown 03/15/2018 mouth daily 100mg Tablets Ibuprofen TK 1 T PO Q 8 H prn Unknown 02/28/2018 800mg Tablets Tylenol Extra as directed, as Unknown 02/19/2018 Strength needed for pain 500mg Tablets Gabapentin Take 2-3 Capsules By 630caps G20 Nir, 12/09/2017 300mg Mouth Every Morning Benito Gonzalez Capsules And Afternoon And 3 Capsules Every Evening Diclofenac Sodium apply up to 1 gram 100gm M79.642 , 10/09/2017 4x/day as needed to Benito Gonzalez 1% Gel base of left thumb Vitamin B12 take 1 sublingual Unknown 05/19/2017 tablet daily 1000mcg Tablets ER Duopa use via pump and G20 Unknown 05/19/2017 G-tube; use as 4.63-20mg/ml directed, 16 Suspension hours/day Carbidopa-Levodopa 1 tablet nightly as Unknown 05/19/2017 needed backup for 25-100mg Tablets pump Neupro daily G20 Unknown 04/11/2017 6mg/24HR Patches 24HR Diazepam take 1/2 to 1 tablet 180tabs G20 Nir, 12/22/2015 2mg by mouth every 4 Benito Gonzalez Tablets hours as needed Metamucil one capsule daily for Unknown 12/21/2015 0.52gm constipation Capsules Calcium Carbonate po daily prn Unknown 08/27/2015 600mg Tablets Vitamin D3 1 by mouth every day Sylviacomaura, 07/12/2015 for vitamin d Benito Gonzalez 5000Unit Capsules replacement Buspirone HCL Take 1 Tablet By 180tabs F41.9 Sylviayobany, 01/03/2015 Mouth Twice Daily For Benito Gonzalez 15mg Tablets Anxiety Prolia Inject 60MG 1units M81.0 Nir, 10/13/2014 60mg/ml Subcutaneously Every Benito Gonzalez Soln Prefill 6 Months (Given AT Syringe Prescribers Office) Fish Oil 1 by mouth every day Unknown 05/12/2014 1200mg Capsules Carbidopa-Levodopa 1 tablet nightly as G20 Unknown 05/12/2014 ER needed backup for 50-200mg pump Tablets ER History Medications Cephalexin 1 cap po twice a 14caps L03.311 Carlos Loyola, 11/13/2018 - 500mg day x 7 days for Benito 11/23/2018 Capsules skin infection K94.22 Medications Administered in Office Medication SIG Qnty [...] CPT Code Status Date Vaccine Lot # 63641 Given 01/14/2019 Influenza Vaccine, Inactivated, Subunit, [id number] Adjuvanted, For Intrmusc 82400 Given 08/12/2014 Zostavax [id number] Given 08/12/2014 Adacel or Boostrix, TDaP [id number] U-Flu Refused 02/07/2018 Influenza,Unspecified 89882 Refused 02/07/2018 Pneumococcal Immunization 30023 Refused 02/07/2018 Prevnar 13 20334 Refused 09/08/2017 Shingrix Zoster (Shingles) Vaccine (HZV) Recomb,Subnit,Adjuvanted Vital Signs Date Vital Result Comment 04/13/2019 11:09am BP Systolic 112 mmHg BP Diastolic 70 mmHg 04/11/2019 1:34pm BP Systolic 114 mmHg BP Diastolic 72 mmHg Weight 130.00 lb Results Test Acquired Facility Test Result H/L [...] Straw Yellow determination determination Urinalysis With 12/16/2018 [facility] Urine Color STRAW Yellow 1 Microscopic LABORATORY [phone] Urine Clarity CLEAR Clear Urine Glucose - Dipstick NEGATIVE mg/dL Negative Urine Bilirubin - Dipstick NEGATIVE Negative Urine Ketone NEGATIVE mg/dL Negative Urine Specific [place] <= 1.005 Low 1.010-1.030 Urine Blood NEGATIVE [...] leukocyte count (number/volume) (number/volume) CBS W/Automated 12/16/2018 [facility]. White Blood Count 8.3 Normal 3.1-10.7 Diff LABORATORY K/uL [phone] Red Blood Count 4.33 M/uL Normal 3.90-5.40 [...] 40.4-72.8 Lymph % 29.2 % Normal 20.0-42.0 Berks % 8.7 % Normal 4.3-13.2 Eo% 2.9 % Normal 0.0-6.6 Bas% 0.4 % Normal 0.0-1.1 Immature Grans 0.4 % Normal 0.0-5.0 NRBC % 0.0 /100WBC < 10/ 100 WBC Neut# 4.85 K/uL Normal 1.8-7.0 Lymph # 2.42 K/uL Normal 1.0-4.0 Berks # 0.72 K/uL Normal 0.3-0.9 Eos # 0.24 K/uL Normal 0.0-0.5 Baso # 0.03 K/uL Normal 0.0-0.1 Immature Grans Absolute 0.03 K/uL NRBC # 0.00 K/uL Stool occult 12/16/2018 N2N/CCD Import Stool occult Negative Negative blood blood Laboratory test 12/16/2018 [facility] Occult NEGATIVE Negative 3 finding LABORATORY Blood,Stool [phone] Wound 11/13/2018 [facility] Wound/Misc SEE RESULT 4 Culture/Sensi [phone] Culture-Gram BELOW Stain CBC 10/23/2018 [facility] White Blood 12.2 K/uL High 3.1- 10.7 5 LABORATORY Count [phone] Red Blood Count 4.26 M/uL Normal 3.90-5.40 Hemoglobin 11.9 gm/dL Normal 11.6-15.8 Hematocrit 38.0 % Normal 36.0-46.1 Mean Cell Volume 89.2 fl Normal 80.9-99.0 Mean Corpuscular HGB 27.9 pg Normal 25.9-32.7 Mean Corpuscular HGB Conc 31.3 g/dL Normal 30.8-34.3 Platelet Count 290 K/uL Normal 155-360 Red Cell Distri Width SD 49.3 fl High 36-47 Red Cell Distri Width %CV 15.0 % High 11.7-14.4 Mean Platelet Volume 9.9 fl Normal 8.9-12.4 NRBC % 0.0 /100WBC < 10/ 100 WBC 1 POSS KIDNEY STONE 2 URINE, CLEAN CATCH 3 Method: gokit Hemoccult Card 4 SEE RESULT BELOW Name: MARYAN TORREZ : [address]: Ann BUCKNER Acct: [id number] Unit: [id number] AGE: 63 Location: [facility] Re11/13/18 SEX: F Status: REG REF SPEC: [id number] TRES: 11/13/18 [facility] DR: Ann BUCKNER REQ: [id number] RECD: 11/13/18 STATUS: COMP _ SOURCE: WOUND SPDESC: ORDERED: Culture Stain COMMENTS: [id number] Specimen Description J tube site Procedure Result Reported Site Wound/Misc Gram Stain Final 11/14/18- 0757 ML 2+ Epithelial Cells No Organisms Seen Wound/Misc Culture Final 11/17/18- 09 ML Organism 1 STREPTOCOCCUS INTERMEDIUS Quantity 1+ Organism 2 NORMAL WADE Quantity 1+ 1. STREPTOCOCCUS INTERMEDIUS M.I.C. RX --------- ------ Chloramphenicol <=1 S Ampicillin 0.12 S Penicillin 0.06 S Meropenem 0.12 S Cefepime 1 S * Cefotaxime <=0.25 S Ceftriaxone <=0.25 S Levofloxacin 0.5 S Azithromycin <=0.25 S Clindamycin <=0.06 S Erythromycin <=0.06 S Tetracycline 1 S Vancomycin 1 S * ML - Main Lab . END OF REPORT DEPARTMENT OF PATHOLOGY, [address] [place] [address] Moise Joyce M.D. Director [facility] # [id number] 5 INCOMPLETE UTEROVAGINAL PROLAPSE;STRICTURE;STENOSI Procedures Date Code Description Status 04/11/2019 25218 X-Ray Ribs Two Views Completed 12/11/2018 09467646 Mammogram Completed 12/06/2012 03903175 Colonoscopy Completed Medical Devices Description No Information Available Encounters Type Date Location Provider Dx Diagnosis Office Visit 04/11/2019 Main Office Letitia Nye, S22.32xD Fracture of one 1:20p P.A. rib, left side, subs for fx w routn heal S22.39xA Fracture of one rib, unsp side, init for clos fx M81.0 Age-related osteoporosis w/o current pathological fracture G20 Parkinson's disease Office Visit 12/19/2018 2:30p Main Office Carlos Loyola, R10.84 Generalized M.D. abdominal pain K59.00 Constipation, unspecified Z93.1 Gastrostomy status Office Visit 11/23/2018 11:30a Main Office Carlos Loyola, K94.22 Gastrostomy M.D. infection L03.311 Cellulitis of abdominal wall Z12.31 Encntr screen mammogram for malignant neoplasm of breast Office Visit 11/13/2018 1:50p Main Office Ann Casas K94.22 Gastrostomy PA infection L03.311 Cellulitis of abdominal wall Assessments Date Code Description Provider 04/11/2019 S22.32xD Fracture of one rib, left side, subsequent Mohamud Morrell encounter for fracture with routine healing 04/11/2019 S22.39xA Fracture of one rib, unspecified side, Mohamud Morrell initial encounter for closed fracture 04/11/2019 M81.0 Age-related osteoporosis without current Shima Morrell. pathological fracture 04/11/2019 G20 Parkinson's disease Mohamud Morrell 01/14/2019 Z23 Encounter for immunization Nurse's Schedule 12/19/2018 R10.84 Generalized abdominal pain Carlos Loyola M.D. 12/19/2018 K59.00 Constipation, unspecified Carlos Loyola M.D. 12/19/2018 Z93.1 Gastrostomy status Carlos Loyola M.D. 11/23/2018 K94.22 Gastrostomy infection Carlos Loyola M.D. 11/23/2018 L03.311 Cellulitis of abdominal wall Carlos Loyola M.D. 11/23/2018 Z12.31 Encounter for screening mammogram for Carlos Loyola M.D. malignant neoplasm of 11/13/2018 K94.22 Gastrostomy infection Ann Casas PA 11/13/2018 L03.311 Cellulitis of abdominal wall Ann Casas PA Plan of Treatment Future Appointment(s):06/06/2019 1:30 pm - Radiology, Dexa & X-Ray at Main Ieqbtt8010/05/2018 - Mohamud MorrellN81.2 Incomplete uterovaginal vnpblgvcD91.2 Stricture and stenosis of cervix brbcwP42.818 Encounter for other preprocedural examinationComments:Maryan has no prior anaesthetic related complications.She has been advised to inform their surgeon ofany acute illness which may occur between now and surgical date. No pre operative labs other than UA were ordered. UA unremarkable. Attention needs to be given to any possible drug interactions with carbidopa-levodopa and any anesthesia or sedating drugs used during the procedure. Other than this consideration: Patient is low risk for surgery planned.G20 Parkinson's diseaseNew Medication: Insentive Spirometry - Follow instructions provided Functional Status Description No Information Available Mental Status Description No Information Available Referrals Refer to Reason for Referral Status Appt Date Juan M Ochoa MD 63yo w/ Parkinson's disease, has J-tube for Closed medication administration. Tube was placed in [place] >1yr ago, was toldat the time no need to have it changed unless problems. The tube is functioning well. She does have some yellowish D/C from the stoma site and a small what looks like inflammatory papule on the right side of it. Assume Management this Problem Only [place] [address]; [address] [place], [place] [address] [phone]
--- OUTSIDE RECORDS SUMMARY | 2019-05-27 17:19 | XMS REPORT | Continuity of Care Document ---
:1955 External Reference #:[id number] Author Name Kai Saeed D.O. Address [address] [place] [address] Care Team Providers Name Role Phone HCP/LW on file Care Team Information Snowmaker Unavailable Mame Paez MD - Neurology Care Team Information Snowmaker [facility] - Care Team Information Snowmaker Nutrition, Education Juan M Ochoa MD - Vascular & Care Team Information Snowmaker [phone] Interventional Radiology Problems Active Problems Provider Date Osteoporosis Carlos Loyola M.D. Onset: 10/13/2014 Vitamin D deficiency Carlos Loyola M.D. Onset: 10/13/2014 Parkinson's disease Carlos Loyola M.D. Onset: 10/13/2014 Anxiety state Carlos Lyoola M.D. Onset: 10/13/2014 Uterovaginal prolapse Ann Casas [...] Medications SIG Qnty Indications Ordering Date Provider Tylenol With 1 by mouth three 21tabs S22.32xD Kai Saeed, 04/13/2019 Codeine #3 times a day as needed D.O. 300-30mg Tablets Nystatin Apply To The Affected 30units K94.22 patsy, 04/10/2019 Area Around Stoma Benito Gonzalez [id number]/GM Site Three Times Cream Daily Until Clear, Resume as Needed Miralax 1 capful/17 grams of K59.00 Unknown 12/17/2018 Powder the powder in 8 ounces of water, once daily, as needed for bm management Colace 1 by mouth once a day Unknown 12/16/2018 100mg to keep stools soft Capsules Insentive Follow instructions 1units Nir, 10/05/2018 Spirometry provided Benito Gonzalez HM Vitamin [...] to 1 gram 100gm M79.642 yobany, 10/09/2017 4x/day as needed to Benito Gonzalez [...] to 1 tablet 180tabs Nir, 12/22/2015 2mg by mouth every 4 Benito Gonzalez Tablets hours as needed Metamucil one capsule daily for Unknown 12/21/2015 0.52gm constipation Capsules Calcium Carbonate po daily prn Unknown 08/27/2015 600mg Tablets Vitamin D3 1 by mouth every day Nir, 07/12/2015 for vitamin d Benito Gonzalez 5000Unit Capsules replacement Buspirone HCL take 1 tablet by 180tabs F41.9 Nir, 01/03/2015 mouth twice daily for Benito Gonzalez 15mg Tablets anxiety Prolia Inject 60MG 1units M81.0 [...] CPT Code Status Date Vaccine Lot # [id number] Given 01/14/2019 Influenza Vaccine, Inactivated, Subunit, [id number] Adjuvanted, For Intrmus 68238 Given 08/12/2014 Zostavax [id number] Given 08/12/2014 Adacel or Boostrix, TDaP [id number] U-Flu Refused 02/07/2018 Influenza,Unspecified [id number] Refused 02/07/2018 Pneumococcal Immunization [id number] Refused 02/07/2018 Prevnar 13 [id number] Refused 09/08/2017 Shingrix Zoster (Shingles) Vaccine (HZV) [...] Straw Yellow determination determination Urinalysis With [facility] Urine Color STRAW Yellow 1 Microscopic LABORATORY [phone] Urine Clarity CLEAR Clear Urine Glucose - Dipstick NEGATIVE mg/dL Negative Urine Bilirubin - Dipstick NEGATIVE Negative Urine Ketone NEGATIVE mg/dL Negative Urine Specific [place] <= 1.005 Low 1.010-1.030 Urine Blood NEGATIVE [...] leukocyte count (number/volume) (number/volume) CBS W/Automated 12/16/2018 [facility]. White Blood Count 8.3 Normal 3.1-10.7 Diff LABORATORY K/uL [phone] Red Blood Count 4.33 M/uL Normal 3.90-5.40 [...] 40.4-72.8 Lymph % 29.2 % Normal 20.0-42.0 Levy % 8.7 % Normal 4.3-13.2 Eo% 2.9 % Normal 0.0-6.6 Bas% 0.4 % Normal 0.0-1.1 Immature Grans 0.4 % Normal 0.0-5.0 NRBC % 0.0 /100WBC < 10/ 100 WBC Neut# 4.85 K/uL Normal 1.8-7.0 Lymph # 2.42 K/uL Normal 1.0-4.0 Levy # 0.72 K/uL Normal 0.3-0.9 Eos # 0.24 K/uL Normal 0.0-0.5 Baso # 0.03 K/uL Normal 0.0-0.1 Immature Grans Absolute 0.03 K/uL NRBC # 0.00 K/uL Stool occult 12/16/2018 N2N/CCD Import Stool occult Negative Negative blood blood Laboratory test 12/16/2018 [facility]. Occult NEGATIVE Negative 3 finding LABORATORY Blood,Stool [phone] Wound 11/13/2018 [facility] Wound/Misc SEE RESULT 4 Culture/Sensi [phone] Culture-Gram BELOW Stain CBC 10/23/2018 [facility] White Blood 12.2 K/uL High 3.1- 10.7 5 LABORATORY Count [phone] Red Blood Count 4.26 M/uL Normal 3.90-5.40 [...] STONE 2 URINE, CLEAN CATCH 3 Method: [employer] Hemoccult Card 4 SEE RESULT BELOW Name: MARYAN TORREZ : [address]: Ann BUCKNER Acct: [id number] Unit: [id number] AGE: 63 Location: [facility] Re11/13/18 SEX: F Status: REG REF SPEC: [id number] TRES: 11/13/18-[address]: Ann BUCKNER REQ: [id number] RECD: 11/13/18 STATUS: COMP _ SOURCE: WOUND SPDESC: ORDERED: Culture Stain COMMENTS: [id number] Specimen Description J tube site Procedure Result Reported Site Wound/Misc Gram Stain Final 11/14/18- 0757 ML 2+ Epithelial Cells No Organisms Seen Wound/Misc Culture Final 11/17/18- 0903 ML Organism 1 STREPTOCOCCUS INTERMEDIUS Quantity 1+ [...] . END OF REPORT DEPARTMENT OF PATHOLOGY, [address] [place] [address] Moise Joyce M.D. Director [facility] # [id number] 5 INCOMPLETE UTEROVAGINAL PROLAPSE;STRICTURE;STENOSI Procedures Date Code Description Status 04/11/2019 19712 X-Ray Ribs Two Views Completed 12/11/2018 [id number] Mammogram Completed 12/06/2012 03010648 Colonoscopy Completed Medical Devices Description No Information Available Encounters Type Date Location Provider Dx Diagnosis Office Visit 04/13/2019 Main Office Kai Saeed D.O. 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 04/13/2019 S22.32xD Fracture of one rib, left side, subsequent Kai Saeed D.O. encounter for fracture with routine healing 04/13/2019 S22.39xA Fracture of one rib, unspecified side, Kai Saeed D.O. initial encounter for closed fracture 04/11/2019 S22.32xD Fracture of one rib, left side, subsequent Letitia Nye , P.A. encounter for fracture with routine healing 04/11/2019 S22.39xA Fracture of one rib, unspecified side, Letitia Nye, P.A. initial encounter for closed fracture 04/11/2019 M81.0 Age-related osteoporosis without current Letitia Nye, P.A. pathological fracture 04/11/2019 G20 Parkinson's disease Letitia Nye, P.A. 01/14/2019 Z23 Encounter for [...] Ann Casas PA Plan of Treatment Future Appointment(s):06/03/2019 1:15 pm - Carlos Loyola M.D. at Main Pvrjbv0706/06/2019 1:30 pm - Radiology, Dexa & X-Ray at Main [id number] - Mohamud MorrellN81.2 Incomplete uterovaginal pqbzhkihU58.2 Stricture and stenosis of cervix cghocD12.818 Encounter for other preprocedural examinationComments:Maryan has no [...] low risk for surgery planned.G20 Parkinson's diseaseNew Medication:Insentive Spirometry - Follow instructions provided Functional Status Description No Information Available Mental Status Description No Information Available Referrals Refer to Reason for Referral Status Appt Date Juan M Ochoa MD 63yo w/ Parkinson's disease, has J-tube for Closed 00// 0000 medication administration. Tube was placed in [place] >1yr ago, was toldat the time no need to have it changed unless problems. The tube is functioning well. She does have some yellowish D/C from the stoma site and a small what looks like inflammatory papule on the right side of it. Assume Management this Problem Only [facility] [address]; [address] [place], [place] [address] [phone]
[2019-05-27 17:30] VITALS: BP 136/65
--- NOTE | 2019-05-27 18:39 | UC ---
Lower Extremity/Ankle HPI - HPI Summary HPI Summary: 64-year-old woman comes in with a chief complaint of swelling of the left leg. Started about 2 days ago. Patient's also having abdominal bloating and discomfort. Patient has a stoma with a J-tube in her abdomen. That has been blocked. 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 She has Parkinson's and her neurologist is also an [place]. Patient appears mildly anxious here in clinic and she did take diazepam for her anxiety. She reports that it's been a while since she took her Parkinson medication and that does make her anxious. No complaint of any chest pain or shortness of breath. No history of DVT or pulmonary embolus. - History of Current Complaint Chief Complaint: UCLowerExtremity Stated Complaint: LEFT LEG/FOOT SWELLING Time Seen by Provider: 05/27/19 18:02 Pain Intensity: 0 - Allergies/Home Medications Allergies/Adverse Reactions: Allergies Allergy/AdvReac Type Severity Reaction Status Date / Time erythromycin base Allergy Hives/Diff. Verified 05/27/19 17:22 Breathing/I tching meperidine [From Demerol] Allergy See Comment Verified 05/27/19 17:22 ampicillin AdvReac Nausea Verified 05/27/19 17:22 Home Medications: Home Medications Carbidopa/Levodopa [Carbidopa-Levodopa 25-100 Tab] 2 each PO SEE INSTRUCTIONS [History Confirmed 05/27/19] PMH/Surg Hx/FS Hx/Imm Hx Previously Healthy: Yes Other Neurological History: PARKINSONS - Surgical History Surgical History: Yes Surgery Procedure, Year, and Place: J-peg tube for feedings. KIDNEY STONES REMOVED 2005 - Family History Known Family History: Positive: Cardiac Disease - Social History Alcohol Use: None Substance Use Type: None Smoking Status (MU): Never Smoked Tobacco Review of Systems All Other Systems Reviewed And Are Negative: Yes Constitutional: Positive: Other - SEE HPI Skin: Positive: Negative Eyes: Positive: Negative ENT: Positive: Negative Respiratory: Positive: Negative Cardiovascular: Positive: Negative Gastrointestinal: Positive: Other - SEE HPI Motor: Positive: Negative Neurovascular: Positive: Negative Musculoskeletal: Positive: Edema - LEFT LEG Neurological: Positive: Other - PARKINSONS; SEE HPI Psychological: Positive: Anxious Is Patient Immunocompromised?: No Physical Exam Triage Information Reviewed: Yes Appearance: Well-Nourished, Ill-Appearing - MILD, Pain Distress - MILD Vital Signs: Initial Vital Signs Temp 97.4 F 05/27/19 17:24 Pulse 86 05/27/19 17:24 Resp 20 05/27/19 17:24 BP 136/65 05/27/19 17:24 Pulse Ox 98 05/27/19 17:24 Vital Signs Reviewed: Yes Eye Exam: Normal Eyes: Positive: Conjunctiva Clear Neck: Positive: Supple Respiratory: Positive: Lungs clear, Normal breath sounds, No respiratory distress Cardiovascular: Positive: RRR Abdomen Description: Positive: Other: - Abdomen is mildly distended and mildly tender to palpation. Bowel Sounds: Positive: Hypoactive Musculoskeletal: Positive: Other: - Left leg is swollen and edematous. Normal capillary refill normal sensation. It is mildly tender to palpation in the calf. Neurological: Positive: Alert, Other: - Parkinson's movements Psychological: Positive: Normal Response To Family, Age Appropriate Behavior Skin Exam: Normal Lower Extremity Course/Dx - Course Course Of Treatment: Given the left leg edema I am concerned for possibility of a DVT. With the abdominal pain and bloating there may be an intra-abdominal process causing all of this. I recommended further evaluation in the emergency department. Patient 's here with her grandson and he will be taking her by POV. I discussed the case with a [facility] emergency department provider. - Differential Dx/Diagnosis Provider Diagnosis: Left leg swelling, Abdominal pain Discharge ED - Sign-Out/Discharge Documenting (check all that apply): Patient Departure All imaging exams completed and their final reports reviewed: No Studies - Discharge Plan Condition: Stable Disposition: HOME-RECOMMEND TO ED Patient Education Materials: Acute Abdominal Pain (ED), Leg Edema (ED) Referrals: Carlos Loyola MD [Primary Care Provider] - Additional Instructions: GO DIRECTLY TO THE EMERGENCY DEPARTMENT FOR FURTHER EVALUATION AND CARE OF YOUR LEFT LEG SWELLING AND ABDOMINAL PAIN. - Billing Disposition and Condition Condition: STABLE Disposition: Home-Recommend to ED
== END 2019-05-27 18:45 | disposition home health service (06) ==
LOC: UCCORT 17:10
DX: M79.89 Other specified soft tissue disorders (principal); R10.9 Unspecified abdominal pain; G20 Parkinson's disease; Z88.0 Allergy status to penicillin; Z88.1 Allergy status to other antibiotic agents; Z88.5 Allergy status to narcotic agent; Z79.899 Other long term (current) drug therapy
CPT/HCPCS: 99212; G0463